=== PATIENT | female | born 1945 | race African-American/Black ===

== ENCOUNTER 2020-04-15 09:12 | Outpatient (CLI) | payer MEDICARE, SELFPAY ==
--- NOTE | ~2020-04-15 | MM_ITS ---
EXAMINATION: MM screening blair BI w ping HISTORY: Screening mammogram TECHNIQUE: Craniocaudal and mediolateral oblique 3-D tomosynthesis images were obtained and synthetic 2-D images were generated. CAD analysis was submitted and interpreted. COMPARISON: 04/10/2019, 04/07/2018, 04/05/2017 bilateral digital screening mammogram examinations BREAST PARENCHYMAL COMPOSITION: The breasts are almost entirely fatty. FINDINGS: Surgical clips are again noted on the right. Scattered bilateral benign calcifications. The re is no evidence of suspicious mass, calcification, or architectural distortion to suggest malignanc y in either breast. There has been no suspicious interval change. IMPRESSION: 1. No mammographic evidence of malignancy. 2. Recommend routine screening mammography in one year. BI-RADS Category 2: Benign finding(s). Reviewed, dictated and finalized at location B.
== END 2020-04-15 09:13 | disposition home or self-care (01) ==
LOC: ANHIMG 09:15
PROVIDERS: PCP Family Medicine; Visit Provider Obstetrics & Gynecology
DX: Z12.31 Encounter for screening mammogram for malignant neoplasm of breast (principal)
CPT/HCPCS: 77063; 77067

== ENCOUNTER 2020-04-29 15:49 | Outpatient (CLI) | payer MEDICARE, SELFPAY ==
--- NOTE | ~2020-04-29 | XR_ITS ---
EXAMINATION: XR lumbar spine 2-3V DATE: 04/29/2020 16:20 INDICATION: Low back pain TECHNIQUE: Anteroposterior and lateral views of the lumbar spine, and cone-down lateral view of the l umbosacral junction were obtained. COMPARISON: None. FINDINGS: There are 5 mm of anterolisthesis of L4 on L5 and 3 mm of retrolisthesis of L5 on S1. There is moderate to severe loss of intervertebral disc space height throughout the lumbar spine. The vert ebral body heights are maintained. Degenerative osteophytes project from the anterior endplates of mu ltiple vertebral bodies. There is no fracture. There is severe lower lumbar facet osteoarthritis. Phl eboliths are noted in the pelvis. The bowel gas pattern is normal. IMPRESSION: 1. Severe lumbar spondylosis without acute findings. Reviewed, dictated and finalized at location A.
--- NOTE | ~2020-04-29 | XR_ITS ---
EXAMINATION: XR hip BI 2V w AP pelvis DATE: 04/29/2020 16:20 INDICATION: Hip pain TECHNIQUE: AP view of the pelvis and two views of the bilateral hips were obtained. COMPARISON: None. FINDINGS: Bone alignment is normal. There is no fracture. Mild bilateral hip osteoarthritis is noted. There are phleboliths of the pelvis. Severe lumbar spondylosis is noted. IMPRESSION: 1. Mild osteoarthritis of the hips. Reviewed, dictated and finalized at location A.
== END 2020-04-29 15:50 | disposition home or self-care (01) ==
LOC: ANHIMG 15:52
PROVIDERS: PCP Family Medicine; Visit Provider Family Medicine
DX: M16.0 Bilateral primary osteoarthritis of hip (principal); M47.896 Other spondylosis, lumbar region
CPT/HCPCS: 72100; 73521

== ENCOUNTER 2020-08-22 12:28 | Outpatient (CLI) | payer MEDICARE, SELFPAY ==
--- NOTE | ~2020-08-22 | CT_ITS ---
EXAMINATION: CT soft tissue neck w con DATE: 08/22/2020 13:10 INDICATION: Sialoadenitis. TECHNIQUE: Computed tomography (CT) of the neck was performed with 75 mL Omnipaque-350 intravenous co ntrast. Automated exposure control and iterative reconstruction technique were employed. The dose-forrest gth product was 672.32 mGy-cm. COMPARISON: Chest CT 03/12/2011 FINDINGS: There is a 2.1 x 1.8 cm mass in superficial right parotid gland. There is no sialolith or e vidence of parotiditis. There are no pathologically enlarged lymph nodes. There is a multinodular goi ter that extends into the mediastinum. The mediastinal component has increased in size from 03/12/2011. The paranasal sinuses are clear. The mastoid air cells are normal. There is moderate cervical spondy losis. IMPRESSION: 1. 2.1 cm right parotid mass. The differential diagnosis includes benign mixed tumor, Warthin tumor, and less likely primary malignancy or daniella metastatic disease. Ultrasound-guided fine-needle aspirat ion is recommended. 2. Multinodular goiter, worsened from 03/12/2011. Reviewed, dictated and finalized at location B. ETING RESEARCH ANALYST IMPRESSION: 1. 2.1 cm right parotid mass. The differential diagnosis includes benign mixed tumor, Warthin tumor, and less likely primary malignancy or daniella metastatic di sease. Ultrasound-guided fine-needle aspiration is recommended. 2. Multinodular goiter, worsened from 03/12/2011.
[2020-08-22 13:04] LABS: Estimated Glomerular Filt Rate 53
== END 2020-08-22 12:29 | disposition home or self-care (01) ==
PROVIDERS: PCP Family Medicine
DX: K11.20 Sialoadenitis, unspecified (principal); E04.2 Nontoxic multinodular goiter
CPT/HCPCS: 70491; Q9967

== ENCOUNTER 2020-09-12 09:53 | Outpatient (CLI) | payer MEDICARE, SELFPAY ==
--- NOTE | ~2020-09-12 | US_ITS ---
EXAMINATION: US FNA w image guidance DATE: 09/12/2020 11:19 INDICATION: Right parotid mass. TECHNIQUE: The procedure and its benefits, risks, and benefits were discussed with the patient. Risks specifical ly discussed included bleeding and nerve injury. The patient verbalized understanding of the risks an d agreed to proceed. The right face was prepped and draped in the usual sterile manner. 1% lidocaine was used for local anesthesia. 5 passes were made with a 25G needle into the lesion. Appropriate n eedle location was documented with continuous sonographic guidance. There were no immediate complica tions. The patient understood to call the ordering physician for results after a week and a half and verbalized that understanding. FINDINGS: Grayscale ultrasound images demonstrate needles advanced into a 2.6 x 1.7 x 2.4 cm very hypoechoic ma ss with internal vascular flow in superficial right parotid gland for biopsy. IMPRESSION: 1. Ultrasound-guided fine needle aspiration of a right parotid mass. Reviewed, dictated and finalized at location A. ITY CONTROL TECH [employer]S
--- NOTE | ~2020-09-12 | CT_ITS ---
EXAMINATION: CT IAC/mastoids BI w con DATE: 09/12/2020 10:45 INDICATION: Left-sided tinnitus. TECHNIQUE: Computed tomography (CT) of the temporal bones was performed with 75 mL Omnipaque 350 intr avenous contrast. Automated exposure control and iterative reconstruction technique were employed. Th e dose-length product was 193.65 mGy-cm. COMPARISON: Neck CT 08/22/2020 FINDINGS: There is a 2.2 cm mass in superficial right parotid gland. RIGHT TEMPORAL BONE: The internal auditory canal, cochlea, vestibule, semicircular canals, vestibular aqueduct, carotid ca nal, jugular bulb, facial nerve course, ossicles, Prussak space, scutum, tympanic membrane, mastoid a ir cells, and external auditory canal are normal. LEFT TEMPORAL BONE: The internal auditory canal, cochlea, vestibule, semicircular canals, vestibular aqueduct, carotid ca nal, jugular bulb, facial nerve course, ossicles, scutum, Prussak space, and mastoid air cells are no rmal. There is a 5 mm mass at the inferior aspect of the cochlear promontory that abuts the tympanic membrane and manubrium of malleus with bone erosions of the cochlear promontory. There is a small vol ume of cerumen in the external auditory canal. IMPRESSION: 1. 5 mm mass in left tympanic cavity. The differential diagnosis includes glomus tympanicum paragangl ioma, cholesteatoma, and chronic otitis media. 2. 2.2 cm right superficial parotid mass. Correlate with today's biopsy results when available. Reviewed, dictated and finalized at location A. PATTERN REPAIRER IMPRESSION: 1. 5 mm mass in left tympanic cavity. The differential diagnosis includes glomu s tympanicum paraganglioma, cholesteatoma, and chronic otitis media. 2. 2.2 cm right superficial parotid mass. Correlate with today's biopsy results when available.
== END 2020-09-12 09:54 | disposition home or self-care (01) ==
PROVIDERS: PCP Family Medicine
DX: H93.12 Tinnitus, left ear (principal); R22.1 Localized swelling, mass and lump, neck
CPT/HCPCS: 10005; 70481; 88173; 88305; Q9967

== ENCOUNTER 2021-04-17 10:38 | Outpatient (CLI) | payer MEDICARE, SELFPAY ==
--- NOTE | ~2021-04-17 | MM_ITS ---
EXAMINATION: MM screening blair BI w ping HISTORY: Screening mammogram TECHNIQUE: Craniocaudal and mediolateral oblique 3-D tomosynthesis images were obtained and synthetic 2-D images were generated. CAD analysis was submitted and interpreted. COMPARISON: 04/15/2020, , 04/07/2018 bilateral digital screening mammogram examinations BREAST PARENCHYMAL COMPOSITION: The breasts are almost entirely fatty. FINDINGS: Surgical clips are noted in the mid to upper inner right breast; history of prior benign ri ght breast biopsy in 1999. Bilateral benign calcifications. There is no evidence of suspicious mass, calcification, or architectural distortion to suggest malignancy in either breast. There has been no suspicious interval change. IMPRESSION: 1. No mammographic evidence of malignancy. 2. Recommend routine screening mammography in one year. BI-RADS Category 2: Benign finding(s). Reviewed, dictated and finalized at location A.
== END 2021-04-17 10:39 | disposition home or self-care (01) ==
LOC: ANHIMG 10:40
PROVIDERS: PCP Family Medicine; Visit Provider Family Medicine
DX: Z12.31 Encounter for screening mammogram for malignant neoplasm of breast (principal)
CPT/HCPCS: 77063; 77067

== ENCOUNTER 2021-06-12 00:27 | Day surgery (SDC) | payer MEDICARE, SELFPAY ==
[2021-05-30 14:45] VITALS: BMI 43.1
[2021-06-12 08:04] VITALS: BP 165/92; PULSE 71; RESP 16; TEMP 35.9; O2SAT 100; BMI 43.1
[2021-06-12] MEDS: LACTATED RINGERS 1,000 ML 150 ML IV CONT (08:11)
--- NOTE | 2021-06-12 08:30 | WPDHPUPDATE1 ---
History and Physical Update Update Date/Time: 06/12/21 08:30 History and Physical has been reviewed, including an updated exam of the patient. There are NO changes in the patient's condition. Risks, benefits, and alternatives have been discussed and questions answered. Patient agrees to proceed with procedure.
--- NOTE | 2021-06-12 08:53 | WPDANESEPPF ---
Anes - Initial Pre Proc Eval Procedure: Operation Date: 06/12/21 09:00 Proposed Procedures p Esophagogastroduodenoscopy & Screening Colonoscopy - Piotr Licona MD Date/Time: 06/12/21 08:53 Surgeon: Piotr Licona MD Pre Op Diagnosis: hx of colon polyps Z86.010 /GERD Patient Data Age: 75 Gender: F Height: 1.57 m Weight: 107 kg Last Vital Signs Temp 96.7 F L 06/12/21 08:04 Pulse 71 06/12/21 08:04 Resp 16 06/12/21 08:04 BP 165/92 H 06/12/21 08:04 Pulse Ox 100 06/12/21 08:04 Allergies Allergy/AdvReac Type Severity Reaction Status Date / Time metoclopramide Allergy Unknown Unknown Verified 06/12/21 08:01 METOCLOPRAMIDE HCL Allergy Severe NEUROLOGIC Uncoded 06/12/21 08:01 CHANGES Home Medications Medication Instructions Recorded Confirmed Type aspirin 81 mg tablet,delayed 81 mg PO DAILY 10/24/19 06/12/21 History release magnesium 250 mg tablet 250 mg PO DAILY 10/24/19 06/12/21 History levothyroxine 125 mcg tablet 125 mcg PO DAILY 12/20/20 05/30/21 History amlodipine 2.5 mg tablet See Rx Instructions .ROUTE 12/30/20 05/30/21 Rx .COMPLEX #90 tablet atorvastatin 10 mg tablet See Rx Instructions .ROUTE 12/30/20 06/12/21 Rx .COMPLEX #90 tablet losartan 100 mg tablet See Rx Instructions .ROUTE 03/07/21 06/12/21 Rx .COMPLEX #90 tablet cholecalciferol (vitamin D3) 25 25 mcg PO DAILY 04/09/21 06/12/21 History mcg (1,000 unit) capsule gabapentin 300 mg capsule 300 mg PO DAILY 04/09/21 06/12/21 History mecobalamin (vitamin B12) 1,000 500 mcg SUBLINGUAL DAILY tablet 04/09/21 06/12/21 History mcg disintegrating tablet,sublingual esomeprazole magnesium 40 mg See Rx Instructions .ROUTE 05/01/21 06/12/21 Rx capsule,delayed release .COMPLEX #90 cap fluticasone propionate 2 spray INTRANASAL DAILY PRN 05/30/21 06/12/21 History Patient hx anesthesia problems: none Family hx anesthesia problems: none PMFSH Past Medical History Medical History Colon polyps Hepatitis C antibody test negative (03/31/17) High cholesterol Pupil dilation Thyroid disease Surgical History Surgical History H/O colonoscopy H/O thyroidectomy (~2020) H/O: hysterectomy (~1979) Partical History of knee replacement (~2010) Family History Family History Father Family history of chronic obstructive pulmonary disease Hypertension Family history of elevated blood lipids Cerebrovascular accident Family history of coronary artery disease Mother Carcinoma of colon Other Asthma Diabetes mellitus Family history of congenital heart disease Family history of malignant neoplasm of breast in first degree relative Family history of osteoporosis Social History Social History (Updated 05/26/21 @ 13:46 by Rosanna Tan CMA) Smoking status: Never smoker Second hand tobacco smoke exposure: No Alcohol intake: never Substance use: never Substance use type: does not use Living arrangements: with family Gender identity (if verbalized by the patient): Female Spiritual care concerns: No Anes - Eval Final PreProcedure Day of Procedure 06/12/21 08:53 Patient weight: morbidly obese Heart: regular rate and rhythm Lungs: clear to auscultation Airway: Mallampati scale class II Neurological: alert and oriented Last oral intake: >/= 8 hours ASA classification: III Emergent: no Anesthetic plan: proceed Anesthesia type and monitoring: general GIVS and standard monitoring Informed Consent: The patient's anesthetic plan and its attendant risks and benefits were discussed with the patient/family/POA. Questions were solicited and answers provided to the satisfaction of the patient/family/POA.
[2021-06-12 09:46] VITALS: BP 135/81; PULSE 92; RESP 29; O2SAT 99
[2021-06-12 09:56] VITALS: BP 128/81; PULSE 85; RESP 28; O2SAT 99
[2021-06-12 10:06] VITALS: BP 143/94; PULSE 81; RESP 22; O2SAT 98
== END 2021-06-12 10:14 | disposition home or self-care (01) ==
PROVIDERS: PCP Family Medicine; Visit Provider Internal Medicine Gastroenterology
PROC: 0DJ08ZZ Inspection of Upper Intestinal Tract, Via Natural or Artificial Opening Endoscopic (ICD-10-PCS; CPT 43235; principal; 2021-06-12 09:00)
DX: Z12.11 Encounter for screening for malignant neoplasm of colon (principal); D12.2 Benign neoplasm of ascending colon; K63.5 Polyp of colon; K57.30 Diverticulosis of large intestine without perforation or abscess without bleeding; K21.9 Gastro-esophageal reflux disease without esophagitis; Q39.4 Esophageal web; E78.00 Pure hypercholesterolemia, unspecified; E66.9 Obesity, unspecified; Z96.659 Presence of unspecified artificial knee joint; Z90.711 Acquired absence of uterus with remaining cervical stump; Z86.010 Personal history of colon polyps
CPT/HCPCS: 45385; 43239; 43450; 87081; 88305; J2704; J7120

== ENCOUNTER 2022-07-27 14:26 | Outpatient (CLI) | payer MEDICARE, SELFPAY ==
--- NOTE | ~2022-07-27 | MM_ITS ---
EXAMINATION: MM screening blair BI w ping HISTORY: Screening TECHNIQUE: Craniocaudal and mediolateral oblique 3-D tomosynthesis images were obtained and synthetic 2-D images were generated. CAD analysis was submitted and interpreted. COMPARISON: Comparison to multiple prior studies sequentially, with oldest reviewed study dated 04/01. BREAST PARENCHYMAL COMPOSITION: Breast composed of scattered areas of fibroglandular density FINDINGS: There is no evidence of suspicious mass, calcification, or architectural distortion to sugg est malignancy in either breast. There has been no suspicious interval change. IMPRESSION: 1. No mammographic evidence of malignancy. 2. Recommend routine screening mammography in one year. BI-RADS Category 1: Negative Reviewed, dictated and finalized at location A.
== END 2022-07-27 14:27 | disposition home or self-care (01) ==
LOC: ANHIMG 14:27
PROVIDERS: PCP Family Medicine; Visit Provider Obstetrics & Gynecology
DX: Z12.31 Encounter for screening mammogram for malignant neoplasm of breast (principal)
CPT/HCPCS: 77063; 77067

== ENCOUNTER 2023-11-23 09:58 | Outpatient (CLI) | payer MEDICARE, SELFPAY ==
--- NOTE | ~2023-11-23 | MM_ITS ---
EXAMINATION: MM screening blair BI w ping HISTORY: Screening mammogram TECHNIQUE: Craniocaudal and mediolateral oblique 3-D tomosynthesis images were obtained and synthetic 2-D images were generated. CAD analysis was submitted and interpreted. COMPARISON: 07/27/2022, 04/17/2021, 04/15/2020, 04/10/2019 BREAST PARENCHYMAL COMPOSITION: There are scattered areas of fibroglandular density. FINDINGS: Scattered benign-appearing calcifications are present. No suspicious mass, calcification, o r architectural distortion are identified in either breast to suggest malignancy. There has been no s uspicious interval change. IMPRESSION: 1. No mammographic evidence of malignancy. 2. Recommend routine screening mammography in one year. BI-RADS Category 2: Benign finding(s). Reviewed, dictated and finalized at location A. INTERVIEWER [employer]AGE
== END 2023-11-23 09:59 | disposition home or self-care (01) ==
PROVIDERS: PCP Family Medicine; Visit Provider Obstetrics & Gynecology
DX: Z12.31 Encounter for screening mammogram for malignant neoplasm of breast (principal)
CPT/HCPCS: 77063; 77067

== ENCOUNTER 2024-04-01 11:12 | Outpatient (CLI) | payer MEDICARE, SELFPAY ==
--- NOTE | ~2024-04-01 | MR_ITS ---
EXAMINATION: MR lumbar spine wo con DATE: 04/01/2024 11:58 INDICATION: Lumbar spondylosis without myelopathy radiculopathy. Low back pain. TECHNIQUE: Magnetic resonance imaging (MRI) of the lumbar spine was performed without intravenous con trast. Sequences included sagittal T2-weighted FSE, sagittal T2-weighted FS FSE, sagittal T1-weighted FSE, and axial T2-weighted FSE. COMPARISON: Lumbar spine radiograph 04/01/2024 FINDINGS: There is 5 mm anterolisthesis of L4 on L5. Vertebral body heights are normal. There is mode rately decreased disc height at L1-L2 and severely decreased disc height from L2-L3 through L5-S1. Th e distal spinal cord signal intensity is normal. The conus medullaris is at L1. The following disc le vels are specifically discussed: L1-L2: The disc is bulging with superimposed central extrusion. There is moderate bilateral facet chepe nt osteoarthritis. There is mild bilateral neural foraminal stenosis. There is mild central canal марина nosis. L2-L3: The disc is bulging and has an annular fissure. There is severe right and moderate left facet joint osteoarthritis. There is moderate bilateral neural foraminal stenosis. There is mild central ca nal stenosis. L3-L4: The disc is bulging and has an annular fissure. There is severe bilateral facet joint osteoart hritis. There is mild right and moderate left neural foraminal stenosis. There is mild central canal stenosis. L4-L5: The disc is bulging and has an annular fissure. There is severe bilateral facet joint osteoart hritis. There is mild bilateral neural foraminal stenosis. There is mild central canal stenosis. L5-S1: The disc is bulging and has an annular fissure. There is severe bilateral facet joint osteoart hritis. There is mild bilateral neural foraminal stenosis. There is mild central canal stenosis. IMPRESSION: 1. Severe lumbar spondylosis. Reviewed, dictated and finalized at location E.
--- NOTE | ~2024-04-01 | XR_ITS ---
XR lumbar spine 6V w bending DATE: 04/01/2024 12:31 INDICATION: Spondylolisthesis, lumbar region TECHNIQUE: AP, lateral, bilateral oblique and cone-down lateral lumbosacral views. Flexion and extens ion upright views COMPARISON: None FINDINGS: Diffuse osteopenia. Degenerative spurring of the lower thoracic spine. Severe degenerative disease throughout the lumbar spine. There is approximately 6.7 mm grade 1 anterolisthesis at L4-5, relatively stable in neutral, flexion and extension. Degenerative change at the apophyseal joints. No spondylolysis is evident. The sacroiliac joints are intact. IMPRESSION: Severe degenerative disc disease of the lumbosacral spine Grade 1 anterolisthesis at L4-5, relatively stable in flexion, extension and neutral Reviewed, dictated and finalized at location A. IMPRESSION: Severe degenerative disc disease of the lumbosacral spine Grade 1 anterolisthesis at L4-5, relatively stable in flexion, extension and ne utral
--- NOTE | ~2024-04-01 | XR_ITS ---
XR hip BI 2V w AP pelvis DATE: 04/01/2024 12:31 INDICATION: Hip pain TECHNIQUE: AP pelvis. AP and lateral views of each hip. COMPARISON: None FINDINGS: Severe degenerative disc disease at L3-4, L4-5, L5-S1. Normal alignment at the pubic symphysis and sacral iliac joints. No pelvic fracture or bone destruction. Mild bilateral hip osteoarthritis. No fracture or dislocation, avascular necrosis or bone destruction of either hip is evident. IMPRESSION: Mild bilateral hip osteoarthritis Multilevel severe degenerative disease of the lumbar spine Reviewed, dictated and finalized at location A.
== END 2024-04-01 11:13 ==
LOC: MICIMG 11:13
PROVIDERS: PCP Family Medicine; Visit Provider Anesthesiology Pain Medicine
DX: M16.0 Bilateral primary osteoarthritis of hip (principal); M43.16 Spondylolisthesis, lumbar region; M51.37 Other intervertebral disc degeneration, lumbosacral region; M51.36 Other intervertebral disc degeneration, lumbar region
CPT/HCPCS: 72114; 72148; 73521

== ENCOUNTER 2024-04-18 09:07 | Day surgery (SDC) | payer MEDICARE, SELFPAY ==
[2024-04-03 11:38] VITALS: BMI 39.8
--- NOTE | ~2024-04-18 | XR_ITS ---
XR fluoroscopy no charge Indication: Bilateral L3, L4 and L5 nerve block TECHNIQUE: Fluoroscopy used during Bilateral L3, L4 and L5 nerve block performed by [Jose Tracy MD] on 04/18/2024. 86 seconds of fluoroscopy with 11 fluoroscopic images captured. FINDINGS: Correlate with procedure note. IMPRESSION: Fluoroscopy used during Bilateral L3, L4 and L5 nerve block. Reviewed, dictated and finalized at location B.
--- NOTE | 2024-04-18 10:34 | PM.HPGS ---
History of Present Illness History of Present Illness Consent: Risks, benefits, and alternatives have been discussed and questions answered. Patient agrees to proceed with procedure. Chief complaint: Lumbosacral Spondylosis, Chronic Dorsalgia Narrative: Flower Austin is a 78 year old female with chronic, recalcitrant and disabling bilateral lumbosacral back pain secondary to degenerative spondylosis with failure to respond to aggressive conservative measures including PT, oral and topical analgesics, opioid and nonopioid analgesics, rest, time and activity/behavioral modification over the past 1-2 years who presents for diagnostic/prognostic medial branch blocks(#1) under fluoroscopic guidance and with contrast control. Review of Systems Review of Systems: Patient denies any new infectious, allergic, cardiopulmonary, neurologic or constitutional symptoms or changes in activity tolerance or exercise capacity including new or progressive SOB/STOREY, peripheral edema, productive cough, dysuria, nausea/vomiting, diarrhea, weight change, fevers/chills/night sweats, new or progressive neurologic deficit, cognitive or mood changes since last seen, except as documented in the HPI. All systems reviewed & are unremarkable except as noted in HPI and below PMFSH Past Medical History Medical History Colon polyps Hepatitis C antibody test negative (03/31/17) High cholesterol Pupil dilation Thyroid disease Surgical History Surgical History H/O colonoscopy H/O mastoidectomy H/O thyroidectomy (~2020) H/O: hysterectomy (~1979) Partical History of knee replacement (~2010) History of parotidectomy History of thyroidectomy History of tympanomastoidectomy Family History Family History Father Family history of chronic obstructive pulmonary disease Hypertension Family history of elevated blood lipids Cerebrovascular accident Family history of coronary artery disease Mother Carcinoma of colon Other Asthma Diabetes mellitus Family history of congenital heart disease Family history of malignant neoplasm of breast in first degree relative Family history of osteoporosis Social History Social History (Updated 03/14/24 @ 13:23 by Roxanne Lyons CMA) Social History: Caffeine-decaf coffee Smoking status: Never smoker Second hand tobacco smoke exposure: No Alcohol intake: never Substance use: never Substance use type: does not use Do You Feel Safe in your Home?: Yes Lack of Transportation: No Lack of Food: Never True Current Housing: I Have Housing Concerned About Future Housing: No Difficulty Paying Gas/Electric Bills: No Difficulty Paying for Meds: No Currently Unemployed: No Education: High School Diploma/GED Difficulty w/ Childcare or Family Care: No Living arrangements: with family Gender identity (if verbalized by the patient): Female Spiritual care concerns: No Meds Home Medications and Allergies Home Medications Medication Instructions Recorded Confirmed Type aspirin 81 mg tablet,delayed 81 mg PO DAILY 10/24/19 04/03/24 History release magnesium 250 mg tablet 250 mg PO DAILY 10/24/19 04/03/24 History cholecalciferol (vitamin D3) 25 25 mcg PO DAILY 04/09/21 04/03/24 History mcg (1,000 unit) capsule mecobalamin (vitamin B12) 1,000 500 mcg sublingual DAILY 04/09/21 04/03/24 History mcg disintegrating tablet,sublingual calcium carbonate (Calcium 600) 600 mg PO DAILY 11/05/21 04/03/24 History esomeprazole magnesium 40 mg 40 mg PO DAILY #90 caps 10/26/23 04/03/24 Rx capsule,delayed release fluticasone propionate 50 See Rx Instructions .Route 11/29/23 04/03/24 Rx mcg/actuation nasal .COMPLEX #16 grams spray,suspension gabapentin 100 mg capsule 200 mg PO DA
--- NOTE | 2024-04-18 10:39 | WPDHPUPDATE1 ---
History and Physical Update Update Date/Time: 04/18/24 10:39 History and Physical has been reviewed, including an updated exam of the patient. There are NO changes in the patient's condition. Risks, benefits, and alternatives have been discussed and questions answered. Patient agrees to proceed with procedure.
[2024-04-18 10:42] VITALS: BP 165/75; PULSE 69; RESP 18; TEMP 36.9; O2SAT 99; BMI 40.3
--- NOTE | 2024-04-18 10:42 | W.PM.PROC2 ---
Procedure Note - Detailed Date of Procedure 04/18/24 Pre-op Diagnosis Lumbosacral Spondylosis, Chronic Dorsalgia Post-op Diagnosis Same Procedure Performed Diagnostic Bilateral Lumbar Medial Branch/Dorsal Ramus Blocks at L3, L4, L5 Treating the Ipsilateral L4-5, L5-S1 Facet Joints Under Fluoroscopic Guidance and with Contrast Control. ( 4 levels blocked). Surgeon Jose Tracy MD Anesthesia Local Description of Procedure INFORMED CONSENT: Risks, benefits and alternatives to the procedure were discussed in detail with the patient who expressed explicit understanding and consent to proceed. Patient was informed verbally and in written form regarding the risks associated with the procedure including the low risk of serious infection, bleeding/bruising, allergic reaction, nerve or organ injury, paralysis, procedural site pain or discomfort, worsening pain and/or mobility, failure to treat and/or disfigurement. The patient expressed explicit understanding and consent to proceed. All materials required for the procedure were available prior to procedure start. Site and side were marked prior to procedure and confirmed in the presence of the patient. PROCEDURE IN DETAIL: The patient was brought to the procedural suite and placed in the prone position. Patient was made comfortable with use of pillows under the head/chest, hips and ankles. Skin overlying the injection site on the affected side(s) was prepared broadly with ChloraPrep applicator and draped in a sterile manner. Aseptic technique was used throughout. The endplates of the vertebral bodies at the site(s) of interest were aligned in the AP view. Ipsilateral oblique angulation was utilized to optimize visualization of the intersection between the superior articulating process and transverse process at each target site. Local anesthesia was established by infiltration with approximately 5 mL of 1% lidocaine via a 1-1/2 inch 27-gauge needle. A 25-gauge 3.5 inch Quincke spinal needle was advanced until the needle tip contacted periosteum at the target site, right L3. Lateral view was utilized to confirm the appropriate placement of the needle tip just anterior to the facet line and superior to the pedicle. In the Lateral view, 0.25 mL of Omnipaque 300 contrast medium was injected after negative aspiration for CSF, blood or other bodily fluid, showing appropriate extra-articular spread of contrast without evidence of intravascular, foraminal or intrathecal placement. A 0.5 mL solution of 0.5% PF bupivacaine was injected after negative repeat aspiration. Appropriate spread of the injectate was confirmed with washout of previously injected contrast. No parasthesias were elicited. Needle was removed completely intact without difficulty. [The same exact procedure was repeated for all remaining levels on the ipsilateral side, right L4, L5 medial branches/dorsal ramus, modified as necessary to accommodate for the new target location with identical findings and results and no evidence of complication.] [The same exact procedure was repeated for all remaining levels on the contralateral side, left L3, L4, L5 medial branches/dorsal ramus, modified as necessary to accommodate for the new target location with identical findings and results and no evidence of complication.] Images were saved and documented in the patient chart. Patient's skin was cleaned and sterile bandage applied. The patient tolerated the procedure well. The patient was transported to the recovery area in stable condition where they were observed for an appropriate amount of time prior to discharge, without evidence of complication. Patient was instructed on the appropriate completion of a pain diary over the next 12-24 hours. The patient was instructed to avoid excessive activity for the next 48 hours, including climbing and frequent use of stairs. Showers only for 48 hours. They were instructed not to drive or operate heavy machinery for 24 hours. The
[2024-04-18 12:07] VITALS: BP 210/98; PULSE 79; RESP 11; O2SAT 96
[2024-04-18 12:13] VITALS: BP 101/55; PULSE 41; RESP 12; O2SAT 97
[2024-04-18 12:14] VITALS: BP 128/63; PULSE 53; RESP 12; O2SAT 95
[2024-04-18 12:17] VITALS: BP 131/61; PULSE 60; RESP 12; O2SAT 95
[2024-04-18] MEDS: LIDOCAINE HCL 1% PF INJ 5 ML VIAL INFILTRATE (12:17)
[2024-04-18] MEDS: BUPivacaine HCL 0.5% 10 ML AMP 3 ML INFILTRATE (12:17)
--- NOTE | 2024-04-18 12:19 | SUR.OPER ---
During procedure, patient felt nauseated and blood pressure had dropped to 101/55 and heart rate dropped to 41. Patient was uncovered and cool wash cloth placed on neck. Surgeon was made aware of situation. Blood pressured rebounded back up to 131/61. Patient stated she felt better but a little dizzy. Heart rate up to 60 BPM.
[2024-04-18 12:24] VITALS: BP 140/72; PULSE 57; RESP 14; O2SAT 100
== END 2024-04-18 12:37 | disposition home or self-care (01) ==
PROVIDERS: PCP Family Medicine; Visit Provider Anesthesiology Pain Medicine
PROC: (CPT 64493; principal; 2024-04-18 11:00)
DX: M47.817 Spondylosis without myelopathy or radiculopathy, lumbosacral region (principal); M54.89 Other dorsalgia
CPT/HCPCS: 64493; 64494; 99199

== ENCOUNTER 2024-06-13 07:44 | Day surgery (SDC) | payer MEDICARE, SELFPAY ==
[2024-05-29 11:02] VITALS: BMI 41.1
--- NOTE | ~2024-06-13 | XR_ITS ---
EXAMINATION: XR fluoroscopy no charge DATE: 06/13/2024 08:58 INDICATION: Bilateral sacroiliitis. TECHNIQUE: 24 intraoperative fluoroscopic views of the pelvis were obtained. I was not present. Fluor oscopy exposure time was 12 seconds. COMPARISON: Pelvis radiograph 04/01/2024. FINDINGS: Images demonstrate needles in the bilateral sacroiliac joints. IMPRESSION: 1. Injection of the bilateral sacroiliac joints. Reviewed, dictated and finalized at location A.
--- NOTE | 2024-06-13 06:34 | PM.HPGS ---
History of Present Illness History of Present Illness Consent: Risks, benefits, and alternatives have been discussed and questions answered. Patient agrees to proceed with procedure. Chief complaint: Sacroiliitis Narrative: Flower Austin is a 78 year old female with chronic, recalcitrant and disabling bilateral lumbosacral back pain secondary to degenerative lumbosacral spondylosis, sacroiliac joint arthropathy and sacroiliitis with failure to respond to aggressive conservative measures including PT, oral and topical analgesics, opioid and nonopioid analgesics, rest, time and activity/behavioral modification over the past 1-2 years who presents for bilateral intra-articular SI joint steroid injections under fluoroscopic guidance and with contrast control. Review of Systems Review of Systems: Patient denies any new infectious, allergic, cardiopulmonary, neurologic or constitutional symptoms or changes in activity tolerance or exercise capacity including new or progressive SOB/STOREY, peripheral edema, productive cough, dysuria, nausea/vomiting, diarrhea, weight change, fevers/chills/night sweats, new or progressive neurologic deficit, cognitive or mood changes since last seen, except as documented in the HPI. All systems reviewed & are unremarkable except as noted in HPI and below PMFSH Past Medical History Medical History Colon polyps Hepatitis C antibody test negative (03/31/17) High cholesterol Pupil dilation Spinal stenosis, lumbar region with neurogenic claudication Thyroid disease Surgical History Surgical History H/O colonoscopy H/O mastoidectomy H/O thyroidectomy (~2020) H/O: hysterectomy (~1979) Partical History of knee replacement (~2010) History of parotidectomy History of thyroidectomy History of tympanomastoidectomy Family History Family History Father Family history of chronic obstructive pulmonary disease Hypertension Family history of elevated blood lipids Cerebrovascular accident Family history of coronary artery disease Mother Carcinoma of colon Other Asthma Diabetes mellitus Family history of congenital heart disease Family history of malignant neoplasm of breast in first degree relative Family history of osteoporosis Social History Social History Social History: Caffeine-decaf coffee Smoking status: Never smoker Second hand tobacco smoke exposure: No Alcohol intake: never Substance use: never Substance use type: does not use Do You Feel Safe in your Home?: Yes Lack of Transportation: No Lack of Food: Never True Current Housing: I Have Housing Concerned About Future Housing: No Difficulty Paying Gas/Electric Bills: No Difficulty Paying for Meds: No Currently Unemployed: No Education: High School Diploma/GED Difficulty w/ Childcare or Family Care: No Living arrangements: alone Gender identity (if verbalized by the patient): Female Spiritual care concerns: No Meds Home Medications and Allergies Home Medications Medication Instructions Recorded Confirmed Type aspirin 81 mg tablet,delayed 81 mg PO DAILY 10/24/19 05/29/24 History release magnesium 250 mg tablet 250 mg PO DAILY 10/24/19 05/29/24 History cholecalciferol (vitamin D3) 25 25 mcg PO DAILY 04/09/21 05/29/24 History mcg (1,000 unit) capsule calcium carbonate (Calcium 600) 600 mg PO DAILY 11/05/21 05/29/24 History fluticasone propionate 50 See Rx Instructions .Route 11/29/23 05/29/24 Rx mcg/actuation nasal .COMPLEX #16 grams spray,suspension gabapentin 100 mg capsule 200 mg PO DAILY #180 caps 01/07/24 05/29/24 Rx amlodipine 2.5 mg tablet 2.5 mg PO DAILY #90 tabs 04/07/24 05/29/24 Rx hydrochlorothiazide 12.5 mg tablet 12.5
--- NOTE | 2024-06-13 06:41 | WPDHPUPDATE1 ---
History and Physical Update Update Date/Time: 06/13/24 06:41 History and Physical has been reviewed, including an updated exam of the patient. There are NO changes in the patient's condition. Risks, benefits, and alternatives have been discussed and questions answered. Patient agrees to proceed with procedure.
--- NOTE | 2024-06-13 06:42 | W.PM.PROC2 ---
Procedure Note - Detailed Date of Procedure 06/13/24 Pre-op Diagnosis Sacroiliitis Post-op Diagnosis Same Procedure Performed bilateral Sacroiliac Joint Steroid Injection under Fluoroscopic Guidance and with Contrast Control. Surgeon Jose Tracy MD Anesthesia Local Description of Procedure INFORMED CONSENT: Risks, benefits and alternatives to the procedure were discussed in detail with the patient who expressed explicit understanding and consent to proceed. Patient was informed verbally and in written form regarding the risks associated with the procedure including the low risk of serious infection, bleeding/bruising, allergic reaction, nerve or organ injury, paralysis, procedural site pain or discomfort, worsening pain and/or mobility, failure to treat and/or disfigurement. The patient expressed explicit understanding and consent to proceed. All materials required for the procedure were available prior to procedure start. Site and side were marked prior to procedure and confirmed in the presence of the patient. PROCEDURE IN DETAIL: The patient was brought to the procedural suite and placed in the prone position. Patient was made comfortable with use of pillows under the head/chest, hips and ankles. Skin overlying the injection site on the affected side(s) was prepared broadly with ChloraPrep applicator and draped in a sterile manner. Aseptic technique was used throughout. The right SI joint was identified in the AP view and contralateral oblique angulation with caudal tilt was utilized to optimize visualization of the inferior and medial joint line representing the posterior portion of the joint. Local anesthesia was established by infiltration with approximately 5 mL of 2% lidocaine via a 1-1/2 inch 27-gauge needle. A 22-gauge 3.5 inch Quincke spinal needle was advanced until the needle entered the inferior third of the joint space approximately 1cm cephalad from its most inferior point. In the AP view, 0.5 mL of Omnipaque 300 contrast medium was injected after negative aspiration for CSF, blood or other bodily fluid, showing appropriate intra-articular spread of contrast without evidence of intravascular, perineural or intrathecal placement. A 1.5 mL solution containing 3 mg of betamethasone in 0.5% PF bupivacaine was injected after repeat negative aspiration. Appropriate spread of the injectate was confirmed with washout of previous injected contrast. No parasthesias were elicited. Needle was removed completely intact without difficulty. The same exact procedure was repeated for all remaining levels on the contralateral side, left SI joint, modified as necessary to accommodate for the new target location with identical findings/results and no evidence of complication. Images were saved and documented in the patient chart. Patient's skin was cleansed and sterile bandage applied. The patient tolerated the procedure well. The patient was transported to the recovery area in stable condition where they were observed for an appropriate amount of time prior to discharge, without evidence of complication. The patient was instructed to avoid excessive activity for the next 48 hours, including climbing and frequent use of stairs. Showers only for 48 hours. They were instructed not to drive or operate heavy machinery for 24 hours. They are to monitor for severe headaches, fevers, chills, night sweats, erythema/swelling at the site or any other signs of infection, bleeding/bruising, bowel or bladder changes as well as new pain, weakness or numbness in the upper or lower extremity. Should they notice these changes, they are instructed to call our office immediately or report directly to the nearest Emergency Department if no answer or if after posted office hours. COMPLICATIONS: None COMMENTS: None CONTRAST WASTED: 29mL Omnipaque 300. Complications No immediate complications Condition Stable Disposition Same day [facility] Billing Surgery - Charge Forwar
[2024-06-13 08:26] VITALS: BP 149/69; PULSE 58; RESP 18; TEMP 36.6; O2SAT 100; BMI 41.5
[2024-06-13 08:42] VITALS: BP 199/91; PULSE 63; RESP 18; O2SAT 98
[2024-06-13] MEDS: LIDOCAINE HCL 1% PF INJ 5 ML VIAL 2 ML INFILTRATE (08:43)
[2024-06-13] MEDS: BUPivacaine HCL 0.5% PF 30 ML VIAL INFILTRATE (08:45)
[2024-06-13] MEDS: BETAMETHASONE SODIUM PHOSPHATE PF INJ 6 MG/ML VIAL INFILTRATE (08:45)
[2024-06-13 08:47] VITALS: BP 178/89; PULSE 63; RESP 14; O2SAT 98
[2024-06-13 08:50] VITALS: BP 164/76; PULSE 59; RESP 15; O2SAT 97
== END 2024-06-13 09:05 | disposition home or self-care (01) ==
PROVIDERS: PCP Family Medicine; Visit Provider Anesthesiology Pain Medicine
PROC: (CPT G0260; principal; 2024-06-13 09:00)
DX: M46.1 Sacroiliitis, not elsewhere classified (principal)
CPT/HCPCS: G0260 ×2; 27096; 99199

== ENCOUNTER 2025-05-14 11:03 | Outpatient (CLI) | payer MEDICARE, SELFPAY ==
--- NOTE | ~2025-05-14 | CT_ITS ---
EXAMINATION: CT sinus wo con DATE: 05/14/2025 11:18 INDICATION: Chronic sinusitis TECHNIQUE: Computed tomography (CT) of the paranasal sinuses was performed without intravenous contra st. The dose-length product was 261.43 mGy-cm. Automated exposure control and iterative reconstructio n technique were employed. COMPARISON: None FINDINGS: There is pneumatization of the sinuses with mild mucosal thickening left posterior ethmoid air cells. No mucoperiosteal reaction or air-fluid levels. Ostiomeatal units are patent. Rightward na isa septal deviation. Mastoids are pneumatized. IMPRESSION: 1. Mild left ethmoid sinus disease. Reviewed, dictated and finalized at location A.
== END 2025-05-14 11:04 | disposition home or self-care (01) ==
LOC: MICIMG 11:03
PROVIDERS: PCP Family Medicine; Visit Provider Otolaryngology Otolaryngology/Facial Plastic Surgery
DX: J32.2 Chronic ethmoidal sinusitis (principal)
CPT/HCPCS: 70486

== ENCOUNTER 2025-05-16 09:44 | Outpatient (CLI) | payer MEDICARE, SELFPAY ==
--- OUTSIDE RECORDS SUMMARY | 2025-05-16 10:08 | XMS_ITS | Encounter Summary ---
Author Organization [facility] Address [address] [place] [address] Phone Care Team Providers Care Machine Gun Mechanic Name Role Phone Renay Montiel DO Primary Care Provider [phone] Elizabeth Melendez MD Unavailable [phone] Encounter Details Date Type Department Care Team (Late st Contact Info) Description 08/04/2021 Orders Only [facility] [phone] Scanning, Provider Social History Tobacco Use Types Packs/Day Years Used Date Smoking Tobacco: Never Smokeless Tobacco: Never Alcohol Use Standard Drinks/Week Comments Never 0 (1 standard drink = 0.6 oz pur e alcohol) AUDIT-C Answer Date Recorded Q1: How often do you have a drink containing alc ohol? Never 08/07/2021 Average Number of Drinks Not on file 021 Q3: How often do you have si x or more drinks on one occasion? Never 08/07/2021 Comments No Sex and Gender Information Value Date Recorded Sex Assigned at Not on file Legal Sex Female 3:10 AM PARCEL POST DELIVERY Gender Identity Female 10/14/2020 11:24 AM PARCEL POST DELIVERY Sexual Orientation Straight 10/14/2020 11 :24 AM PARCEL POST DELIVERY documented as of this encounter Functional Status documented as of this encounter Plan of Treatment Not on file documented as of this encounter Procedures Procedure Name Priority Date/Time Associated Diagnosis Comments SCAN - RADIOLOGY/IMAGING 08/04/2021 documented in this encounter Results * SCAN - RADIOLOGY/IMAGING (08/04/2021) Anatomical Region Laterality Modality Other us Provider Scanning Final Result documented in this encounter Visit Diagnoses Not on filedocumented in this encounter Care Teams Machine Gun Mechanic Relationship Specialty Start Date End Date Renay Montiel DO PCP - General Family Medicine 10/15/20 Elizabeth Melendez MD [address] [address] Consulting Physician Otolaryngology 11/04/20 documented as of this encounter
--- OUTSIDE RECORDS SUMMARY | 2025-05-16 10:08 | XMS_ITS | Clinical Summary ---
Author Organization [facility] [place] Address [address] [place] [address] Phone Care Team Providers Care Supervisor Calibration Name Role Phone Rafita Benoit MD Primary Care Provider [phone] Allergies No known active allergies Medications levothyroxine (SYNTHROID) 100 mcg Oral tablet Take 100 mcg by mouth daily. Active lisinopril (PRINIVIL) 20 mg Oral tablet Take 20 mg by mouth daily. Active esomeprazole (NEXIUM) 40 mg Oral CpDR Take 40 mg by mouth daily before breakfast. Active Amlodipine-Atorv astatin (CADUET) 2.5-10 mg Oral tablet Take 1 Tab by mouth daily. Active irbesartan (AVAPRO) 150 mg Oral tablet Take 150 mg by mouth daily at bedtime. Active aspirin (VIANCA) 81 mg Oral Tab Take 81 mg by mouth daily. Active diclofenac sodium (VOLTAREN) 75 mg Oral TbEC Take 75 mg by mouth 2 times daily. Active CALCIUM ORAL Take by mouth. Active CYANOCOBALAMIN, VITAMIN B-12, (VITAMIN B-12 ORAL) Take by mouth. Active POTASSIUM (POTASSIMIN ORAL) Take by mouth. Active MAGNESIUM CARBONATE ORAL Take by mouth. Active Active Problems Patient Care Coordination No te Formatting of this note migh t be different from the original. Primary Care: Rafita Benoit MD Referring Provider: Yoly Negrete [address] [place] [address] Other: Problem Noted Date Diagnosed Date Abnormal mammogram, unspecified 01/31/2010 HTN (hypertension) Hyperlipidemia Arthritis Overview (01/31/2010): knees GERD (gastroesophageal reflux disease) Hypothyroidism Family History Medical History Relation Name Comments Heart Disease Father Colon Cancer Mother Breast Cancer Paternal Aunt Cancer Neg Hx Ovarian Cancer Neg Hx Relation Name Status Comments Father Mother Paternal Aunt 58 Social History Tobacco Use Types Packs/Day Years Used Date Smoking Tobacco: Never Alcohol Use Standard Drinks/Week Comments No 0 (1 standard drink = 0.6 oz pur e alcohol) Comments No Sex and Gender Information Value Date Recorded Sex Assigned at Not on file 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 Gender Identity Not on file Sexual Orientation Not on file Last Filed Vital Signs Vital Sign Reading Time Taken Comments Blood Pressure 196/96 08/11/2010 1:20 PM CDT Pulse - - Temperature - - Respiratory Rate - - Oxygen Saturation - - Inhaled Oxygen Concentration - - Weight 106.1 kg (234 lb) 08/11/2010 1:20 PM CDT Height 157.5 cm (5' 2) 08/11/2010 1:20 PM CDT Body Mass Index 42.8 08/11/2010 1:20 PM CDT Plan of Treatment Health Maintenance Due Date Last Done Comments DTAP/TDAP/TD VACCINES (1 - Tdap) 1964 PNEUMOCOCCAL VACCINE 50+ YEARS (1 of 1 - PCV) 12/25/18 96 ZOSTER VACCINE (1 of 2) 12/26/1995 OSTEOPOROSIS SCREENING 2010 RSV VACCINE (60+ or ) (1 - 1-dose 75+ series) 2020 INFLUENZA VACCINE (#1) 2025 Insurance Member Subscriber Plan / Payer (Ef fective 2021-Present) Name:Flower Austin Relation to Subscriber:Spouse Name:SHEILA AUSTIN Date of :1945 (Home) Address: [address] [place] [id number] Payer ID:[id number] (NAIC) Type:PPO Address: [facility] [id number] [place] [id number] MEDICARE PART A AND B Care Teams Supervisor Calibration Relationship Specialty Start Date End Date Rafita Benoit MD [address] [place] [address] PCP - General Family Practice 01/31/10
--- OUTSIDE RECORDS SUMMARY | 2025-05-16 10:08 | XMS_ITS | Clinical Summary ---
Author Organization [facility] Address [address] [address] Phone Care Team Providers Care Folder And Notcher Name Role Phone Piotr Brandt DO Unavailable [phone] Rafita Benoit MD Primary Care Provider [phone] Allergies Active Allergy Reactions Criticality Noted Date Comments Metoclopramide Hcl Unknown 12/02/2015 Medications losartan (COZAAR) 100 MG Tablet Take 100 mg by mouth daily. Active esomeprazole (NEXIUM) 40 MG CAPSULE DELAYED RELEASE Take 40 mg by mouth every morning (before breakfast). Active levothyroxine (SYNTHROID) 100 MCG Tablet Take 100 mcg by mouth daily. Active lisinopril (PRINIVIL, ZESTRIL) 20 MG Tablet Take 20 mg by mouth 2 times daily. Active Amlodipine-Ator vastatin 2.5-10 MG Tablet Take 1 Tab by mouth daily. Active Aspirin 81 MG Tablet Take 81 mg by mouth daily. Active Calcium Carb-Cholecalci ferol 600-800 MG-UNIT Tablet Take by mouth 2 times daily. Active Cholecalciferol (VITAMIN D3) 1000 UNIT Tablet Take by mouth daily. Active Cyanocobalamin (B-12) 500 MCG Tablet Take by mouth daily. Active Magnesium 250 MG Tablet Take by mouth daily. Active Ferrous Sulfate (IRON) 325 (65 FE) MG Tablet Take by mouth 2 times daily. Active ibuprofen (MOTRIN) 200 MG Tablet Take 200 mg by mouth 2 times daily. Active fluticasone (FLONASE) 50 MCG/ACT Suspension 1-2 Sprays by Nasal route daily. Use in each nostril as directed. Active Immunizations Immunization Administration Dates Next Due Covid-19, Mrna, Lnp-s, PF, 1 00 mcg/0.5 mL Dose (Moderna) 12/16/2020,11/15/2020 Influenza Vaccine greater than 3 yrs 07/15/2017 Family History Medical History Relation Name Comments Chronic Obstructive Pulmonary Disease Father Colon Cancer Mother Breast Cancer Other Aunt x2 Relation Name Status Comments Father Mother Other Social History Tobacco Use Types Packs/Day Years Used Date Smoking Tobacco: Never Smokeless Tobacco: Never Alcohol Use Standard Drinks/Week Comments No 0 (1 standard drink = 0.6 oz pur e alcohol) Comments Unknown Sex and Gender Information Value Date Recorded Sex Assigned at Female 03/14/2024 4:50 PM CDT Legal Sex Female 7:54 PM CDT Gender Identity Female 03/14/2024 4:50 PM CDT Sexual Orientation Straight 03/14/2024 4: 50 PM CDT Plan of Treatment Health Maintenance Due Date Last Done Comments Hepatitis C Virus (HCV) Screening 1945 TdaP Immunization 1945 Pneumococcal Immunization (50+ years) (1 of 1 - PCV) 12/26/1995 Zoster Immunization (2 of 3) 11/03/2015 09/08/2015 Respiratory Syncytial Virus (RSV) Immunization (Adult) (1 - 1-dose 75+ series) 2020 SARS-COV-2 Immunization ( season) 2024 01/11/2022, 08/24/2021, 12/16/2020, Additional history exists Influenza Immunization (#1) 2025 09/2 03/2019, 07/11/2018, 07/15/2017, Additional history exists Colonoscopy Discontinued 11/28/2015 Colorectal Cancer Screening Discontinued DTaP/Tdap/Td Immunization Discontinued 12/09/2017 Cologuard Discontinued Hepatitis B Immunization Aged Out No longer eligible based on patient's age to complete this topic Human Papillomavirus (HPV) Immunization Aged Out No longer eligible based on patient's age to complete this topic Immunochemical Fecal Occult Blood Discontinued Meningococcal Immunization (ACWY) Aged Out No longer eligible based on patient's age to complete this topic Rotavirus Immunization Aged Out No lo nger eligible based on patient's age to complete this topic Procedures Procedure Name Priority Date/Time Associated Diagnosis Comments COLONOSCOPY Routine 11/28/2015 from Last 3 Months or Most Recently Relevant to Health Maintenance Results * HM COLONOSCOPY (11/28/2015) Rafita Benoit MD PROCEDURE/MINOR SURGICAL ORDE JB Final Result from Last 3 Months or Most Recently Relevant to Health Maintenance Insurance MEDICARE Care Teams Folder And Notcher Relationship Specialty Start Date End Date Rafita Benoit MD [address] [place] [address] PCP - General Family Medicine 12/09/16 Piotr Brandt DO Gastroenterology 12/05/15
--- OUTSIDE RECORDS SUMMARY | 2025-05-16 10:08 | XMS_ITS | Clinical Summary ---
Author Organization [facility] Address [address] [place] [address] Care Team Providers Care Staff Nurse Icu Resource Team Name Role Phone Renay Montiel DO Primary Care Provider [phone]- [phone] Elizabeth Melendez MD Unavailable [phone] Allergies Active Allergy Reactions Criticality Noted Date Comments Metoclopramide Mental status changes High 12/02/2015 Nsaids (Non-Steroidal Anti-Inflammatory Drug) Stomach upset Low 10/18/2020 Medications amLODIPine (NORVASC) 2.5 mg tabletIndicat ions:hyperten galen Take 1 tablet (2.5 mg total) by mouth every morning 10/06/20 20 Active cyanocobalami n (Vitamin B-12) 500 mcg tabletIndicat ions:Preventi on of Vitamin B12 Deficiency Take 1 tablet (500 mcg total) by mouth every morning Active esomeprazole DR (NexIUM) 40 mg capsuleIndica tions:Treatme nt of Non-Bleeding Gastric Disorder Take 1 capsule (40 mg total) by mouth every morning Active losartan (COZAAR) 100 mg tabletIndicat ions:hyperten galen Take 1 tablet (100 mg total) by mouth every morning 09/13/20 20 Active atorvastatin (LIPITOR) 10 mg tabletIndicat ions:hyperlip idemia Take 1 tablet (10 mg total) by mouth every morning Active magnesium oxide (MAG-OX) 250 mg (150.8 mg elemental) tabletIndicat ions:hypomagn esemia Take 1 tablet (250 mg total) by mouth every morning Active cholecalcifer ol (VITAMIN D-3) 1,000 unit capsuleIndica tions:Vitamin D Deficiency Take 1 capsule (1,000 Units total) by mouth every morning Active fluticasone propionate (FLONASE) 50 mcg/actuation nasal spray Administer 2 sprays into each nostril daily as needed for allergies Active aspirin 81 mg enteric coated tabletIndicat ions:heart health Take 1 tablet (81 mg total) by mouth every morning Active calcium carbonate/vit rangel D3 (CALCIUM 500 + D ORAL)Indicati ons:supplemen t Take 1 tablet by mouth every morning Active acetaminophen (TYLENOL) 500 mg tablet Take 1 tablet (500 mg total) by mouth every 6 (six) hours as needed for pain or headaches Active Euthyrox 112 mcg tablet TAKE 1 TABLET BY MOUTH ONCE DAILY IN THE MORNING BEFORE BREAKFAST 30 tablet 02/24/20 22 Active hydroCHLOROth iazide (HYDRODIURIL) 12.5 mg tablet hydrochlorothiazide 12.5 mg tablet TAKE 1 TABLET BY MOUTH ONCE DAILY Active gabapentin (NEURONTIN) 300 mg capsule TAKE 1 CAPSULE BY MOUTH NIGHTLY 30 capsule 11/23/19 23 Active gabapentin (NEURONTIN) 100 mg capsule TAKE 2 CAPSULES BY MOUTH ONCE DAILY WITH LUNCH 01/07/20 24 Active Active Problems Problem Noted Date Diagnosed Date Arthritis 11/18/2023 Overview (11/18/2023): knees GERD (gastroesophageal reflux disease) HTN (hypertension) 11/18/2023 Hyperlipidemia 11/18/2023 Hypothyroidism 11/18/2023 Bilateral primary osteoarthritis of hip 07/28/20 22 Trochanteric bursitis of both hips 07/15/2022 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 Overview (02/04/2021): Added automatically from request for surgery [id number] 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 Overview (10/21/2020): Added automatically from request for surgery [id number] Nontoxic multinodular goiter 10/21/2020 Overview (10/21/2020): Added automatically from request for surgery [id number] Nontoxic uninodular goiter 10/21/2020 Overview (10/21/2020): Added automatically from request for surgery [id number] Abnormal mammogram 01/31/2010 Encounters Date Type Department Care Team Description 04/06/2025 Telephone [facility] [address] [place] [address] [address] [place] [address] Ermelinda Trejo NP 03/16/2025 1:30 PM CDT Office Visit [facility] [address] [place] [address] [address] [place] [address] Ermelinda Trejo NP Trochanteric bursitis of both hips (Primary Dx) from Last 3 Months Immunizations Immunization Administration Dates Next Due Influenza, Unspecified 06/10/2020 Surgical History Surgery Date Site/Laterality Comments TOTAL KNEE ARTHROPLASTY 10/11/2010 - 10/10/2011 Bilatera l BREAST MASS EXCISION 10/11/2000 - 10/10/2001 Right benign HYSTERECTOMY 10/11/1984 - 10/10/1985 TYMPANOMASTOIDECTOMY W/ OSSICULOPLASTY 10/11/2020 - 09/12 THYROIDECTOMY 10/11/2020 - 11/10/2020 Medical History Medical History Date Comments GERD (gastroesophageal reflux disease) Hypertension Nontoxic multinodular goiter Osteoarthritis CKD (chronic kidney disease) stage 3, GFR 30-59 ml/min ([facility]) Morbid obesity with BMI of 40.0-44.9, adult ([facility] ) BMI 42 Dyslipidemia Prediabetes Diabetes mellitus ([facility]) Hyperlipidemia Hiatal hernia Family History Medical History Relation Name Comments Clotting disorder Brother Kapil Blake COPD Father Alek Blake Stroke Father Alek Blake Cancer Mother Laurent Blake Anesthesia problems Neg Hx Relation Name Status Comments Brother Kapil Blake Daughter 1 Rhea [place] Daughter 2 Rhea [place] Father Alek Blake Father's Brother Emmanuel Blake Father's Sister 1 Verónica Blake Father's Sister 2 Lila Blake Father's Sister 3 Lilo Blake Mother Laurent Blake Paternal Grandfather Vincenzo Blake Paternal Grandmother Bonny Blake Social History Tobacco Use Types Packs/Day Years Used Date Smoking Tobacco: Never Smokeless Tobacco: Never Tobacco Cessation:Counseling Given: Not Answered Alcohol Use Standard Drinks/Week Comments Never 0 (1 standard drink = 0.6 oz pur e alcohol) AUDIT-C Answer Date Recorded Q1: How often do you have a drink containing alcohol? Never 12/14/2024 Q2: How many drinks containi ng alcohol do you have on a typical day when you are drinking? Patient does not drink Q3: How often do you have si x or more drinks on one occasion? Never 12/14/2024 Comments No Sex and Gender Information Value Date Recorded Sex Assigned at Not on file Legal Sex Female 3:10 AM OFFSET PRINTING OPERATOR Gender Identity Female 10/14/2020 11:24 AM OFFSET PRINTING OPERATOR Sexual Orientation Straight 10/14/2020 11 :24 AM OFFSET PRINTING OPERATOR Obstetrics History Last Filed Vital Signs Vital Sign Reading Time Taken Comments Blood Pressure 165/82 03/16/2025 1:25 PM CDT Pulse 82 03/16/2025 1:25 PM CDT Temperature 24.4 C (76 F) 07/28/2022 9:27 AM CDT Respiratory Rate 18 12/14/2024 9:27 AM OFFSET PRINTING OPERATOR Oxygen Saturation 95% 08/15/2021 4:40 PM CDT Inhaled Oxygen Concentration - - Weight 104.6 kg (230 lb 9.6 oz) 03/16/2025 1:25 PM CDT Height 154.9 cm (5' 1) 03/16/2025 1:25 PM CDT Body Mass Index 43.57 03/16/2025 1:25 PM CDT Plan of Treatment Health Maintenance Due Date Last Done Comments Depression Screening 1945 Hepatitis C Screening 1945 Osteoporosis Screening-Bone Density Scan 1945 Hepatitis B Screening 12/26/1963 Pneumococcal vaccine 65+ (1 of 1 - PCV) 12/26/1995 Well Visit 65+ 2010 Zoster Vaccine (2 of 3) 11/03/2015 09/08/2015 DTaP/Tdap/Td Vaccine (1 - Tdap) 12/10/2017 03/01/201 8 Fall Risk Assessment 08/15/2022 08/15/2021 Covid-19 Vaccine (3 - 4-2 5 season) 2024 12/16/2020, 11/15/2020 Influenza Vaccine (#1) 2025 0, 07/06/2019, 07/11/2018, Additional history exists Medical Devices Implanted Type Area Agronomy Instructor Device Identifier Shelf Expiration Date Model / Serial / Lot Total Joint Bilateral: Knee Procedures Procedure Name Priority Date/Time Associated Diagnosis Comments SC ARTHROCENTESIS ASPIR&/INJ MAJOR JT/BURSA W/O US Routine 03/16/2025 1:30 PM CDT Trochanteric bursitis of both hips from Last 3 Months Results * SC ARTHROCENTESIS ASPIR&/INJ MAJOR JT/BURSA W/O US (03/16/2025 1:30 PM CDT) Narrative Saud Gonzalez MD - 03/16/2025 1:30 PM CDT Saud Gonzalez MD 03/19/2025 8:00 AM Greater trochanteric bursa injection Performed by: Ermelinda Trejo NP Authorized by: Ermelinda Trejo NP Greater Trochanteric Bursa Injection: Consent Given by: Patient Site marked: the procedure site was marked Timeout: prior to procedure the correct patient, procedure, and site was verified Verbal consent obtained?: Yes Prior to the start of the procedure, verbal verification by the procedure participant(s) confirmed (as applicable): corect patient idenity; correct site/side marked and visible; agreement on the procedure to be done; correct patient positioning; an accurate procedure consent form, relevant images and results correctly labeled and displayed; any safety precautions based on clinical history and/or medication use have been addressed.: Supporting Documentation: Indications: Pain and therapeutic Procedure Details: Site: Left Greater Trochanteric Bursa Prep: patient was prepped and draped in usual sterile fashion Patient position: Sidelying Needle Size: 22 G Ultrasound guidance: No Approach: Lateral Medications: 80 mg methylPREDNISolone acetate 80 mg/mL; 4 mL lidocaine 20 mg/mL (2 %) Patient tolerance: Patient tolerated the procedure well with no immediate complications us Ermelinda Trejo DIRECTOR DENTAL SERVICES IN CLINIC/BEDSIDE ORDER [place] Final Result from Last 3 Months Insurance [place] [id number] [facility] MEDICARE ADVANTAGE UHC MEDICARE ADVANTAGE Member Subscriber Plan / Payer (Ef fective 2020-Present) Name:Flower Austin Relation to Subscriber:Self Name:Austin, Flower Amos Payer ID:[id number] (NAIC) Type:[facility] MEDICARE Address: [place] [id number] [facility] [place] [id number] Advance Directives For more information, please contact: [phone] * Full Code (Latest Code Status on File) Date Activated Date Inactivated Comments 10/28/2020 2:46 PM 10/29/2020 3:20 PM Care Teams Staff Nurse Icu Resource Team Relationship Specialty Start Date End Date Renay Montiel DO PCP - General Family Medicine 10/15/20 Elizabeth Melendez MD [address] [address] Consulting Physician Otolaryngology 11/04/20
== END 2025-05-16 09:45 | disposition home or self-care (01) ==
LOC: ANHAUDIO 09:44
PROVIDERS: PCP Family Medicine; Visit Provider Otolaryngology Otolaryngology/Facial Plastic Surgery
DX: H74.8X2 Other specified disorders of left middle ear and mastoid (principal); H93.8X2 Other specified disorders of left ear; R42 Dizziness and giddiness; Z98.890 Other specified postprocedural states
CPT/HCPCS: 92557; 92567

== ENCOUNTER 2025-07-04 08:41 | Outpatient (CLI) | payer MEDICARE, SELFPAY ==
--- OUTSIDE RECORDS SUMMARY | 2025-07-04 09:03 | XMS_ITS | Clinical Summary ---
Author Organization [facility] Address [address] [place] [address] Phone Care Team Providers Care Drier Tender Naphthalene Name Role Phone Rafita Benoit MD Primary Care Provider [phone] Allergies No known active allergies Medications levothyroxine [...] Negrete [address] [place] [id number] Other: Problem Noted Date Diagnosed Date Abnormal [...] on file Legal Sex Female 5:52 AM SUSTAINABILITY EXECUTIVE DIRECTOR Gender Identity Not on file Sexual Orientation [...] series) 2020 INFLUENZA VACCINE (#1) 2025 Insurance [facility] OPTIONS PPO [id number] MEDICARE PART A AND B Care Teams Drier Tender Naphthalene Relationship Specialty Start Date End Date Rafita Benoit MD [address] [place] [address] PCP - General Family Practice 01/31/10
--- OUTSIDE RECORDS SUMMARY | 2025-07-04 09:03 | XMS_ITS | Clinical Summary ---
Author Organization [facility] Address [address] [address] Phone Care Team Providers Care Cutting And Splicing Supervisor Name Role Phone Piotr Brandt DO Unavailable [phone] Rafita Benoit MD Primary Care Provider [phone] Allergies Active Allergy Reactions Criticality Noted Date [...] to Health Maintenance Insurance MEDICARE Care Teams Cutting And Splicing Supervisor Relationship Specialty Start Date End Date Rafita Benoit MD [address] [place] [id number] PCP - General Family Medicine 12/09/16 Piotr Brandt DO Gastroenterology 12/05/15
--- OUTSIDE RECORDS SUMMARY | 2025-07-04 09:03 | XMS_ITS | Clinical Summary ---
Author Organization [facility] Address [address] [facility] [place] [address] Care Team Providers Care Paint Trimmer Pipe Bowls Name Role Phone Renay Montiel DO Primary Care Provider [phone]- [phone] Elizabeth Melendez MD Unavailable [phone] Allergies Active Allergy Reactions Criticality Noted Date [...] ONCE DAILY WITH LUNCH 01/07/20 24 Active Hospital, Clinic, or Other Facility Administered Medication Ordered Dose Route Frequency Start Date End Date Status lidocaine (XYLOCAINE) 20 mg/mL (2 %) injection 4 mLIndications:Admi nistration of Local Anesthesia 4 mL OTHER One-Time Injection 06/19/2025 06/19/2025 Ended methylPREDNISolone acetate (DEPO-medrol) injection 80 mgIndications:Troc hanteric bursitis of both hips 80 mg intra-artic One-Time Injection 06/19/2025 06/19/2025 Ended Active Problems Problem Noted Date Diagnosed Date Arthritis 11/18/2023 Overview (11/18/2023): knees GERD (gastroesophageal reflux disease) HTN (hypertension) 11/18/2023 Hyperlipidemia 11/18/2023 Hypothyroidism 11/18/2023 Bilateral primary osteoarthritis of hip 07/28/20 22 Trochanteric bursitis of both hips 07/15/2022 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 Overview (02/04/2021): Added automatically from request for surgery [id number] 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 Overview (10/21/2020): Added automatically from request for surgery [id number] Nontoxic multinodular goiter 10/21/2020 Overview (10/21/2020): Added automatically from request for surgery [id number] Nontoxic uninodular goiter 10/21/2020 Overview (10/21/2020): Added automatically from request for surgery [id number] Abnormal mammogram 01/31/2010 Encounters Date Type Department Care Team Description 06/19/2025 9:15 AM CDT Office Visit [facility] Medicine [address] [place] [address] [address] [place] [address] Jade Son PA Trochanteric bursitis of both hips (Primary Dx) 04/06/2025 Telephone [facility] [address] [place] [address] [address] [place] [address] Ermelinda Trejo NP from Last 3 Months Immunizations Immunization Administration [...] kidney disease) stage 3, GFR 30-59 ml/min ([facility]) Morbid obesity with BMI of 40.0-44.9, adult (HCC ) BMI 42 Dyslipidemia Prediabetes Diabetes mellitus Hyperlipidemia Hiatal hernia Family History Medical History [...] on file Legal Sex Female 3:10 AM ENVIRONMENTAL REMEDIATION CONSULTANT Gender Identity Female 10/14/2020 11:24 AM ENVIRONMENTAL REMEDIATION CONSULTANT Sexual Orientation Straight 10/14/2020 11 :24 AM ENVIRONMENTAL REMEDIATION CONSULTANT Obstetrics History Last Filed Vital Signs Vital Sign Reading Time Taken Comments Blood Pressure 181/88 06/19/2025 9:14 AM CDT Pulse 67 06/19/2025 9:14 AM CDT Temperature 24.4 C (76 F) 07/28/2022 9:27 AM CDT Respiratory Rate 18 12/14/2024 9:27 AM ENVIRONMENTAL REMEDIATION CONSULTANT Oxygen Saturation 95% 08/15/2021 4:40 PM CDT Inhaled Oxygen Concentration - - Weight 107 kg (236 lb) 06/19/2025 9:14 AM CDT Height 154.9 cm (5' 1) 06/19/2025 9:14 AM CDT Body Mass Index 44.59 06/19/2025 9:14 AM CDT Plan of Treatment Health Maintenance Due Date Last Done Comments Depression Screening 1945 Hepatitis C Screening 1945 Osteoporosis Screening-Bone Density Scan 1945 Hepatitis B Screening 12/26/1963 Well Visit 65+ 2010 Fall Risk Assessment 08/15/2022 08/15/2021 Covid-19 Vaccine (6 - 2024-2 6 season) 2025 08/14/2023, 01/11/2022, 08/24/2021, Additional history exists Influenza Vaccine (#1) 2025 , 06/17/2023, 07/07/2021, Additional history exists DTaP/Tdap/Td Vaccine (3 - Td or Tdap) 12/10/2027 12/09/2017, 09/09/2007, 11/20/1996 Pneumococcal vaccine 65+ Completed 11/05/2014, 06/11 Zoster Vaccine Completed 05/09/2023, 01/10, 09/08/2015 Medical Devices Implanted Type Area Rough Rice Grader Device Identifier Shelf Expiration Date Model / Serial / Lot Total Joint Bilateral: Knee Procedures Procedure Name Priority Date/Time Associated Diagnosis Comments ND ARTHROCENTESIS ASPIR&/INJ MAJOR JT/BURSA W/O US Routine 06/19/2025 9:15 AM CDT Trochanteric bursitis of both hips from Last 3 Months Results * ND ARTHROCENTESIS ASPIR&/INJ MAJOR JT/BURSA W/O US (06/19/2025 9:15 AM CDT) Narrative Saud Gonzalez MD - 06/19/2025 9:15 AM CDT Saud Gonzalez MD 06/19/2025 3:23 PM Greater trochanteric bursa injection Performed by: Jade Son PA Authorized by: Jade Son PA Greater Trochanteric Bursa Injection: Consent Given by: [...] procedure well with no immediate complications us Jade LAYNE IN CLINIC/BEDSIDE ORD ERABLES Final Result from Last 3 Months Insurance UHC MEDICARE ADVANTAGE [facility] MEDIC[facility] Address: [address] [address] UHC MEDICARE ADVANTAGE [facility] MEDICARE Address: [facility] [address] [place] [address] Advance Directives For more information, please contact: [phone] * Full Code (Latest Code Status on File) Date Activated Date Inactivated Comments 10/28/2020 2:46 PM 10/29/2020 3:20 PM Care Teams Paint Trimmer Pipe Bowls Relationship Specialty Start Date End Date Renay Montiel DO PCP - General Family Medicine 10/15/20 Elizabeth Melendez MD [address] [address] Consulting Physician Otolaryngology 11/04/20
--- OUTSIDE RECORDS SUMMARY | 2025-07-04 09:03 | XMS_ITS | Encounter Summary ---
Author Organization [facility] Address [address] [place] [address] Phone Care Team Providers Care Convention Planner Name Role Phone Renay Montiel DO Primary Care Provider [phone] Elizabeth Melendez MD Unavailable [phone] Encounter Details Date Type Department Care Team (Late st Contact Info) Description 08/04/2021 Orders Only [facility] [phone] Scanning, Provider Social History Tobacco Use Types [...] on file Legal Sex Female 3:10 AM MARKETING PLANNER Gender Identity Female 10/14/2020 11:24 AM MARKETING PLANNER Sexual Orientation Straight 10/14/2020 11 :24 AM MARKETING PLANNER documented as of this encounter Functional Status [...] on filedocumented in this encounter Care Teams Convention Planner Relationship Specialty Start Date End Date Renay Montiel DO PCP - General Family Medicine 10/15/20 Elizabeth Melendez MD [address] [address] Consulting Physician Otolaryngology 11/04/20 documented as of this encounter
--- NOTE | 2025-07-04 09:09 | ECG_ITS ---
Test Date: 2025-07-04 09:25:34 Measurements Intervals [place] Rate: 60 P: 20 MD: 160 QRS: -17 QRSD: 122 T: 76 QT: 415 QTc: 418 Interpretive Statements SINUS RHYTHM LEFT VENTRICULAR HYPERTROPHY AND ST-T CHANGE [VOLTAGE CRITERIA PLUS ST/T ABNORMALITY] ABNORMAL ECG No previous ECG available for comparison Electronically Signed On 07-05-2025 12:35:30 CDT by Mike Interiano M.D.
[2025-07-04 09:53] LABS: Anion Gap 7 mmol/L (4-12); Blood Urea Nitrogen 14 mg/dL (7-17); Calcium 9.2 mg/dL (8.4-10.2); Carbon Dioxide 32 mmol/L (22-30); Chloride 102 mmol/L (98-107); Estimated Glomerular Filt Rate 44; Glucose 112 mg/dL (65-110); Potassium 4.2 mmol/L (3.4-5.0); Sodium 141 mmol/L (137-145)
== END 2025-07-04 08:42 | disposition home or self-care (01) ==
PROVIDERS: PCP Family Medicine; Visit Provider Anesthesiology
DX: I12.9 Hypertensive chronic kidney disease with stage 1 through stage 4 chronic kidney disease, or unspecified chronic kidney disease (principal); N18.30 Chronic kidney disease, stage 3 unspecified; T50.2X5A Adverse effect of carbonic-anhydrase inhibitors, benzothiadiazides and other diuretics, initial encounter; E78.2 Mixed hyperlipidemia
CPT/HCPCS: 36415; 80048; 93005

== ENCOUNTER 2025-07-10 05:45 | Day surgery (SDC) | payer MEDICARE, SELFPAY ==
[2025-07-03 10:51] VITALS: BMI 43.7
--- NOTE | ~2025-07-10 | XR_ITS ---
EXAMINATION: XR fluoroscopy no charge DATE: 07/10/2025 08:22 INDICATION: Minimally invasive lumbar decompression bilaterally at L3-L4 and L4-L5 TECHNIQUE: 214 images of the lower lumbar spine were obtained during procedure performed by Dr. Tracy. Radiologist was not present for the imaging or procedure. The amount of fluoroscopy time used during this procedure was 5.9 minutes. Curious of radiation dose of 364.22 mGy. COMPARISON: None. FINDINGS/IMPRESSION: Fluoroscopy utilized during reported lumbar decompression bilaterally at L3-L4 and L4-L5. See procedure note for further detail. Reviewed, dictated and finalized at location A.
--- OUTSIDE RECORDS SUMMARY | 2025-07-10 05:58 | XMS_ITS | Encounter Summary ---
Author Organization [facility] Address [address] [place] [address] Phone Care Team Providers Care Bookstore Clerk Name Role Phone Renay Montiel DO Primary Care Provider [phone] Elizabeth Melendez MD Unavailable [phone] Encounter Details Date Type Department Care Team (Late st Contact Info) Description 08/04/2021 Orders Only [facility] [phone] Scanning, Provider Social History Tobacco Use Types [...] on file Legal Sex Female 3:10 AM LOADING AND UNLOADING SUPERVISOR Gender Identity Female 10/14/2020 11:24 AM LOADING AND UNLOADING SUPERVISOR Sexual Orientation Straight 10/14/2020 11 :24 AM LOADING AND UNLOADING SUPERVISOR documented as of this encounter Functional Status [...] on filedocumented in this encounter Care Teams Bookstore Clerk Relationship Specialty Start Date End Date Renay Montiel DO PCP - General Family Medicine 10/15/20 Elizabeth Melendez MD [address] [address] Consulting Physician Otolaryngology 11/04/20 documented as of this encounter
--- OUTSIDE RECORDS SUMMARY | 2025-07-10 05:58 | XMS_ITS | Clinical Summary ---
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 Overview (10/21/2020): Added automatically from request for surgery [id number] Nontoxic multinodular goiter 10/21/2020 Overview (10/21/2020): Added automatically from request for surgery [id number] Nontoxic uninodular goiter 10/21/2020 Overview (10/21/2020): Added automatically from request for surgery [id number] Abnormal mammogram 01/31/2010 Encounters Date Type Department Care Team Description 06/19/2025 9:15 AM CDT Office Visit [facility] Orth[facility] and Sports Medicine [address] [place] [phone] Jade Son PA Trochanteric bursitis of both [...] kidney disease) stage 3, GFR 30-59 ml/min (HCC) Morbid obesity with BMI of 40.0-44.9, adult ([facility] ) BMI 42 Dyslipidemia Prediabetes Diabetes mellitus Hyperlipidemia Hiatal hernia Family History Medical History Relation Name Comments Clotting disorder Brother Kapil Blake COPD Father Alek Blake Stroke Father Alek Blake Cancer Mother Francoise Lou Anesthesia problems Neg Hx Relation Name Status [...] on file Legal Sex Female 3:10 AM MANAGER HYDRAULIC Gender Identity Female 10/14/2020 11:24 AM MANAGER HYDRAULIC Sexual Orientation Straight 10/14/2020 11 :24 AM MANAGER HYDRAULIC Obstetrics History Last Filed Vital Signs Vital Sign Reading Time Taken Comments Blood Pressure 181/88 06/19/2025 9:14 AM CDT Pulse 67 06/19/2025 9:14 AM CDT Temperature 24.4 C (76 F) 07/28/2022 9:27 AM CDT Respiratory Rate 18 12/14/2024 9:27 AM MANAGER HYDRAULIC Oxygen Saturation 95% 08/15/2021 4:40 PM CDT [...] 01/10, 09/08/2015 Medical Devices Implanted Type Area Animal Assisted Therapist Device Identifier Shelf Expiration Date Model / Serial / Lot Total Joint Bilateral: Knee Procedures Procedure Name Priority Date/Time Associated Diagnosis Comments SC ARTHROCENTESIS ASPIR&/INJ MAJOR JT/BURSA W/O US Routine 06/19/2025 9:15 AM CDT Trochanteric bursitis of both hips from Last 3 Months Results * SC ARTHROCENTESIS ASPIR&/INJ MAJOR JT/BURSA W/O US (06/19/2025 [...] Final Result from Last 3 Months Insurance MEDICARE ADVANTAGE [facility] MEDIC[facility] Address: [address] [address] UHC MEDICARE ADVANTAGE [facility] Address: [place] [id number] [place] [address] Advance Directives For more information, please contact: [phone] * Full Code (Latest Code Status on File) Date Activated Date Inactivated Comments 10/28/2020 2:46 PM 10/29/2020 3:20 PM Care Teams Oil Refiner Relationship Specialty Start Date End Date Dinesh Renay NewberryDO PCP - General Family Medicine 10/15/20 Elizabeth Melendez MD [address] [address] Consulting Physician Otolaryngology 11/04/20
--- OUTSIDE RECORDS SUMMARY | 2025-07-10 05:58 | XMS_ITS | Clinical Summary ---
Author Organization [facility] Address [address] [place] [address] Phone Care Team Providers Care Sales Route Driver Name Role Phone Rafita Benoit MD Primary Care Provider [phone] Allergies No known active allergies Medications levothyroxine [...] Negrete [address] [place] [id number] Other: Problem Noted Date Diagnosed Date Abnormal [...] on file Legal Sex Female 5:52 AM PEARL GLUE DRIER Gender Identity Not on file Sexual Orientation [...] series) 2020 INFLUENZA VACCINE (#1) 2025 Insurance [facility] OPTIONS PPO [id number] MEDICARE PART A AND B Care Teams Sales Route Driver Relationship Specialty Start Date End Date Rafita eBnoit MD [address] [place] [address] PCP - General Family Practice 01/31/10
[2025-07-10 06:20] VITALS: BP 193/74; PULSE 62; RESP 18; TEMP 36.6; O2SAT 98
[2025-07-10] MEDS: LACTATED RINGERS 1,000 ML 30 ML IV CONT (06:40)
[2025-07-10 06:50] VITALS: BP 155/76
--- NOTE | 2025-07-10 07:12 | WPDANESEPPF ---
Anes - Initial Pre Proc Eval Procedure: Operation Date: 07/10/25 07:30 Proposed Procedures p Minimally Invasive Lumbar Decompression Bilateral L3-4, L4-5 under Fluoroscopic Guidance, Possible Epidurogram - Jose Tracy MD Date/Time: 07/10/25 07:12 Surgeon: Jose Tracy MD Pre Op Diagnosis: spinal stenosis lumbar region Patient Data Age: 79 Gender: F Height: 1.55 m Weight: 104.6 kg Last Vital Signs Temp 97.8 F 07/10/25 06:20 Pulse 62 07/10/25 06:20 Resp 18 07/10/25 06:20 BP 155/76 H 07/10/25 06:50 Pulse Ox 98 07/10/25 06:20 O2 Del Method Room Air 07/10/25 06:20 Allergies Allergy/AdvReac Type Severity Reaction Status Date / Time metoclopramide (From Reglan) AdvReac Severe Confusion Verified 07/10/25 06:24 NSAIDS (Non-Steroidal AdvReac Intermediate gerd Verified 07/10/25 06:24 Anti-Inflamma Home Medications ?Medication ?Instructions ?Recorded ?Confirmed ?Type aspirin 81 mg tablet,delayed 81 mg PO DAILY 10/24/19 07/10/25 History release magnesium 250 mg tablet 250 mg PO DAILY 10/24/19 07/10/25 History cholecalciferol (vitamin D3) 25 25 mcg PO DAILY 04/09/21 07/10/25 History mcg (1,000 unit) capsule calcium carbonate (Calcium 600) 600 mg PO DAILY 11/05/21 07/10/25 History amlodipine 2.5 mg tablet See Rx Instructions .Route 01/22/25 07/10/25 Rx .COMPLEX #90 tabs hydrochlorothiazide 12.5 mg tablet See Rx Instructions .Route 01/22/25 07/10/25 Rx .COMPLEX #90 tabs losartan 100 mg tablet See Rx Instructions .Route 01/22/25 07/10/25 Rx .COMPLEX #90 tabs gabapentin 100 mg capsule 200 mg (2 x 100 mg) PO DAILY #180 02/20/25 07/10/25 Rx caps atorvastatin 10 mg tablet See Rx Instructions .Route 04/19/25 07/10/25 Rx .COMPLEX #90 tabs esomeprazole magnesium 40 mg See Rx Instructions .Route 04/23/25 07/10/25 Rx capsule,delayed release .COMPLEX #90 caps fluticasone propionate 50 See Rx Instructions .Route 04/24/25 07/10/25 Rx mcg/actuation nasal .COMPLEX #16 grams spray,suspension gabapentin 300 mg capsule 300 mg PO QHS #90 caps 05/14/25 07/10/25 Rx levothyroxine 112 mcg tablet 112 mcg PO DAILY #90 tabs 05/14/25 07/10/25 Rx Patient hx anesthesia problems: none Family hx anesthesia problems: none Results Review: All pre-operative results and documents have been reviewed as part of the pre-operative evaluation. [facility] Past Medical History Medical History Spinal stenosis, lumbar region with neurogenic claudication Colon polyps High cholesterol Thyroid disease Pupil dilation Hepatitis C antibody test negative (03/31/17) Surgical History Surgical History History of thyroidectomy History of parotidectomy History of tympanomastoidectomy H/O mastoidectomy H/O thyroidectomy (~2020) History of knee replacement (~2010) H/O: hysterectomy (~1979) Partical H/O colonoscopy Family History Family History Father Family history of chronic obstructive pulmonary disease Hypertension Family history of elevated blood lipids Cerebrovascular accident Family history of coronary artery disease Mother Carcinoma of colon Other Asthma Diabetes mellitus Family history of congenital heart disease Family history of malignant neoplasm of breast in first degree relative Family history of osteoporosis Social History Social History Social History: Caffeine-decaf coffee Smoking status: Never smoker Second hand tobacco smoke exposure: No Alcohol intake: never Substance use: never Substance use type: does not use Do You Feel Safe in your Home?: Yes Lack of Transportation: No Lack of Food: Never True Current Housing: I Have Housing Concerned About Future Housing: No Difficulty Paying Gas/Electric Bills: No Difficulty Paying for Meds: No Currently Unemployed: No Education: High School Diploma/GED Difficulty w/ Childcare or Family Care: No Living arrangements: alone Gender identity (if verbalized by the patient): Female Spiritual care concerns: No Anes - Eval Final PreProcedure Day of Procedure 07/10/25 07:12 Heart: regular rate and rhythm Lungs: clear to auscultation Airway: Mallampati scale class III Neurological: alert and oriented Last oral intake: >/= 8 hours ASA classification: III Anesthetic plan: proceed Anesthesia type and monitoring: monitored anesthesia care Results Review: All pre-operative results and documents have been reviewed as part of the pre-operative evaluation. Informed Consent: The patient's anesthetic plan and its attendant risks and benefits were discussed with the patient/family/POA. Questions were solicited and answers provided to the satisfaction of the patient/family/POA.
--- NOTE | 2025-07-10 07:16 | PM.HPGS ---
History of Present Illness History of Present Illness Consent: Risks, benefits, and alternatives have been discussed and questions answered. Patient agrees to proceed with procedure. Chief complaint: Lumbar spinal stenosis with neurogenic claudicatio Narrative: Flower Austin is a 79 year old female with chronic, recalcitrant and disabling bilateral low back and lower extremity pain secondary to S lumbar spinal stenosis with ligamentum flavum hypertrophy with failure to respond to aggressive conservative measures including PT, oral and topical analgesics, opioid and nonopioid analgesics, rest, time and activity/behavioral modification over the past 1-2 years who presents for minimally invasive lumbar decompression of the bilateral L3-4, L4-5 intervertebral levels under fluoroscopic guidance with possible epidurogram. Review of Systems Review of Systems: Patient denies any new infectious, allergic, cardiopulmonary, neurologic or constitutional symptoms or changes in activity tolerance or exercise capacity including new or progressive SOB/STOREY, peripheral edema, productive cough, dysuria, nausea/vomiting, diarrhea, weight change, fevers/chills/night sweats, new or progressive neurologic deficit, cognitive or mood changes since last seen, except as documented in the HPI. All systems reviewed & are unremarkable except as noted in HPI and below PMFSH Past Medical History Medical History Spinal stenosis, lumbar region with neurogenic claudication Colon polyps High cholesterol Thyroid disease Pupil dilation Hepatitis C antibody test negative (03/31/17) Surgical History Surgical History History of thyroidectomy History of parotidectomy History of tympanomastoidectomy H/O mastoidectomy H/O thyroidectomy (~2020) History of knee replacement (~2010) H/O: hysterectomy (~1979) Partical H/O colonoscopy Family History Family History Father Family history of chronic obstructive pulmonary disease Hypertension Family history of elevated blood lipids Cerebrovascular accident Family history of coronary artery disease Mother Carcinoma of colon Other Asthma Diabetes mellitus Family history of congenital heart disease Family history of malignant neoplasm of breast in first degree relative Family history of osteoporosis Social History Social History Social History: Caffeine-decaf coffee Smoking status: Never smoker Second hand tobacco smoke exposure: No Alcohol intake: never Substance use: never Substance use type: does not use Do You Feel Safe in your Home?: Yes Lack of Transportation: No Lack of Food: Never True Current Housing: I Have Housing Concerned About Future Housing: No Difficulty Paying Gas/Electric Bills: No Difficulty Paying for Meds: No Currently Unemployed: No Education: High School Diploma/GED Difficulty w/ Childcare or Family Care: No Living arrangements: alone Gender identity (if verbalized by the patient): Female Spiritual care concerns: No Meds Home Medications and Allergies Home Medications ?Medication ?Instructions ?Recorded ?Confirmed ?Type aspirin 81 mg tablet,delayed 81 mg PO DAILY 10/24/19 07/10/25 History release magnesium 250 mg tablet 250 mg PO DAILY 10/24/19 07/10/25 History cholecalciferol (vitamin D3) 25 25 mcg PO DAILY 04/09/21 07/10/25 History mcg (1,000 unit) capsule calcium carbonate (Calcium 600) 600 mg PO DAILY 11/05/21 07/10/25 History amlodipine 2.5 mg tablet See Rx Instructions .Route 01/22/25 07/10/25 Rx .COMPLEX #90 tabs hydrochlorothiazide 12.5 mg tablet See Rx Instructions .Route 01/22/25 07/10/25 Rx .COMPLEX #90 tabs losartan 100 mg tablet See Rx Instructions .Route 01/22/25 07/10/25 Rx .COMPLEX #90 tabs gabapentin 100 mg capsule 200 mg (2 x 100 mg) PO DAILY #180 02/20/25 07/10/25 Rx caps atorvastatin 10 mg tablet See Rx Instructions .Route 04/19/25 07/10/25 Rx .COMPLEX #90 tabs esomeprazole magnesium 40 mg See Rx Instructions .Route 04/23/25 07/10/25 Rx capsule,delayed release .COMPLEX #90 caps fluticasone propionate 50 See Rx Instructions .Route 04/24/25 07/10/25 Rx mcg/actuation nasal .COMPLEX #16 grams spray,suspension gabapentin 300 mg capsule 300 mg PO QHS #90 caps 05/14/25 07/10/25 Rx levothyroxine 112 mcg tablet 112 mcg PO DAILY #90 tabs 05/14/25 07/10/25 Rx Allergies Allergy/AdvReac Type Severity Reaction Status Date / Time metoclopramide (From Reglan) AdvReac Severe Confusion Verified 07/10/25 06:24 NSAIDS (Non-Steroidal AdvReac Intermediate gerd Verified 07/10/25 06:24 Anti-Inflamma Vital Signs Vital Signs - 24 hr 07/10/25 06:20 07/10/25 06:50 Temperature 97.8 F Pulse Rate 62 Respiratory Rate 18 Blood Pressure 193/74 H 155/76 H Pulse Oximetry 98 Oxygen Delivery Room Air Exam Narrative: The patient's physical exam is essentially unchanged from prior examination on 06/04/2025. Specifically, patient demonstrates normal lung capacity, tidal volume and respiratory rate without wheezes, crackles, rales or rubs. Heart rate and rhythm are regular without murmurs, gallops or rubs. No JVD. Pulses 2+ globally without increasing peripheral edema. AAOx3 with no evidence of confusion, intoxication or altered mental state, NC/AT without acute distress or altered consciousness. Speech, cognition, mood, insight and judgment at baseline and within normal limits. Assessment and Plan Assessment and plan (1) Spinal stenosis, lumbar region with neurogenic claudication: Code(s): M48.062 - Spinal stenosis, lumbar region with neurogenic claudication Status: Acute Assessment and Plan: Proceed as planned with minimally invasive lumbar decompression of the bilateral L3-4, L4-5 intervertebral levels under fluoroscopic guidance with possible epidurogram. (2) Chronic pain: Code(s): G89.29 - Other chronic pain Status: Acute
--- NOTE | 2025-07-10 07:19 | WPDHPUPDATE1 ---
History and Physical Update Update Date/Time: 07/10/25 07:19 History and Physical has been reviewed, including an updated exam of the patient. There are NO changes in the patient's condition. Risks, benefits, and alternatives have been discussed and questions answered. Patient agrees to proceed with procedure.
[2025-07-10] MEDS: LIDOCAINE 2% PF LOCAL INJ 5 ML VIAL 10 ML INFILTRATE (08:11)
[2025-07-10] MEDS: EPINEPHRINE INFILTRATE (08:11)
[2025-07-10] MEDS: MARCAINE 0.5% INFILTRATE (08:11)
[2025-07-10] MEDS: [UNRECOGNIZED DRUG - OTHER] INFILTRATE (08:11)
--- NOTE | 2025-07-10 08:17 | SUR.OPER ---
mild device kit-- ref- [id number] EXP 2028-05-08 LOT- [id number]
--- NOTE | 2025-07-10 08:26 | W.PM.PROC2 ---
Procedure Note - Detailed Date of Procedure 07/10/25 Pre-op Diagnosis Lumbar spinal stenosis with neurogenic claudication Post-op Diagnosis Same Procedure Performed Bilateral Minimally Invasive Lumbar Decompression (MILD) at L3-4, L4-5 with Intra-operative Interlaminar Epidural Access for Epidurogram under Fluoroscopic Guidance. Surgeon Jose Tracy MD Seed Expert None Anesthesia Other ([Moderate IV sedation/MAC] with local anesthetic infiltration in the prone position) Description of Procedure INFORMED CONSENT: Risks, benefits, and alternatives to the procedure were discussed in detail with the patient who expressed explicit understanding and consent to proceed. Risks discussed with the patient included but were not limited to risk of serious local or systemic infection, bleeding/bruising, epidural hematoma, dural puncture or tear resulting in CSF leak and acute or chronic post-dural puncture headache, scarring/deformity, immediate or delayed allergic reaction, decreased mobility, failure to treat pain, inadvertent neurologic injury resulting in increased pain, weakness/paralysis or numbness, inadvertent organ injury, need for additional surgery, allergic reaction, heart attack, stroke, seizure, coma, . Anesthetic risks were also briefly discussed by myself and the fox raiser. The patient expressed understanding and consent to proceed, agreeing that potential benefits outweigh risk of harm. All materials required for the procedure were immediately available prior to procedure start. Site and side were confirmed with the patient, compared carefully to the patient chart and consent, and marked prior to transport to the operating room. Appropriate time out procedure was performed per protocol prior to procedure start. PROCEDURE IN DETAIL: The patient was brought to the operative suite and placed in the prone position. Appropriate ASA standard monitors were attached. Anesthesia was initiated without difficulty or event. Eyes were protected. Pressure points were padded with joints in neutral position. When appropriate, breasts and genitals were evaluated and protected. Eyes were checked and were free from undue pressure. Skin overlying the procedure site was marked with sterile marker. Surgical area was prepared in a typical sterile fashion with ChloraPrep and allowed to dry for at least 3 minutes prior to sterilely draping the surgical site. The lumbar spine was identified in the AP fluoroscopic view with slight cephalad tilt perfectly aligning the endplates at the targeted levels with spinous processes bisecting the transpedicular plane. After identifying the intended incision site approximately 1.5 levels inferior to the level of interest, the area was anesthetized by infiltration with no more than 10ml of a 1:1 admixture of 0.5% PF bupivacaine with epinephrine and 2% PF lidocaine with epinepherine via a 27-gauge needle after negative aspiration. A 22-gauge spinal needle was used to provide additional and adequate local anesthesia to the level of the interspinous ligament, ligamentum flavum and the periosteum of the lamina at the intended treatment levels. In the AP view, a #11 scalpel blade was used to create a single stab incision at the intended incision site on the targeted side. The Vertos MILD kit was opened and the included cannula and trocar assembly was advanced through the incision to contact the midportion of the right lamina just adjacent to the spinous process at L5. Once seated, the lateral view was used to gauge depth demonstrating the most anterior tip of the trocar posterior to the epidural space at all times. The automotive exhaust emissions technician-provided cannula stabilizer was placed over the trocar flush to the patient's lumbar flank. Cannula obturator with handle was removed. Included depth guide was then attached to the insertion port on the cannula and set to an intitial depth of 15 mm. The bone rongeur was advanced to the depth of the lumbar lamina at the targeted level. Depth gauge was then adjusted allowing rongeur tip to advance in the contralateral oblique view to the anterior border of the superior and inferior lamina at the respective intervertebral foramen. Multiple passes of the rongeur were used in the contralateral oblique view to remove single small portions of ligament and bone in a 360-degree distribution, approximately 3-5 passes on each lamina, until appropriate access to the superior and inferior attachments of the ligamentum flavum was created at the surgical level right L4-5. Each individual portion of bone removed was extracted, collected and discarded. Rongeur was removed and replaced with a tissue sculpter which was deployed from inferior to superior in the contralateral oblique view to delaminate the ligamentum flavum at the intended level with serial groupings of three passes each, 6-9 total per side treated. Tissue extracted was discarded. At no point did the rongeur or tissue sculpter violate the anterior border of the ligament as evidenced by intact interface at the ligament/epidural border. The same procedure was repeated in the exact same fashion, utilizing the initial stab incision, to effectively debulk the ligamentum flavum and decompress the central spinal canal on the right at L3-4, with similar results and no evidence of complication. The same exact procedure was then repeated in the exact same fashion, utilizing a new stab incision on the contralateral side, to effectively debulk the ligamentum flavum and decompress the central spinal canal on the left at L3-4, L4-5. Bone and tissue sculpters were withdrawn, obturator replaced and trocar removed in the lateral view, entirely and without difficulty. Hemostasis was obtained and confirmed. Mastisol was placed around the incision site(s) and Steri-Strips were placed in a opal-crossing fashion across the wound(s), which were then covered with Telfa dressing and Tegaderm. The patient was converted to the supine position and transported to the recovery area having tolerated the procedure well with no evidence of complication. The patient was instructed to minimize weightbearing activity, including ambulation, for 48 hours, and to avoid bending, twisting at the waist, overhead work, reaching and lifting, pushing or pulling greater than 5-10 lbs for 48 hours with subsequent return to normal activity as tolerated. The patient is to maintain current dressing for 48 hours, then can remove the original dressing, leaving steri-strips in place until they come off on their own or are removed by their provider. Once removing the outer bandage, the patient will cover the incision with clean gauze and paper tape as needed, changing daily or when soiled. The patient understands they should avoid soaking or submerging the incision for 1 week and can resume showers after 48 hours. Instructions were provided to the patient in both verbal and written form, which the patient obtained, reviewed and signed prior to discharge. The patient was instructed to watch for signs of infection including fevers, chills, night sweats, severe headache, neck stiffness, new neurologic deficit, bowel or bladder changes, increased pain, discharge, bleeding, swelling, opening of or unusual warmth at the incision site. They are to call our office or report directly to the Emergency Department immediately should there be any signs/symptoms of complications such as the above or any other urgent/emergent changes in their condition. COMMENTS: None. COMPLICATIONS: None. DRAINS/PACKING: None. SPECIMEN: None. ESTIMATED BLOOD LOSS: 5 mL. IV FLUIDS: On chart. CONTRAST WASTED: 0 ml of Omnipaque 300. Pathology None sent Complications No immediate complications Condition Stable Disposition [facility] Billing Surgery - Charge Forward: Surgery Billing
[2025-07-10 08:27] VITALS: BP 113/59; PULSE 74; RESP 16; O2SAT 96
[2025-07-10 08:42] VITALS: BP 124/75; PULSE 68; RESP 16; O2SAT 98
[2025-07-10 09:05] VITALS: BP 141/73; PULSE 58; RESP 16; O2SAT 100
== END 2025-07-10 09:12 | disposition home or self-care (01) ==
PROVIDERS: PCP Family Medicine; Visit Provider Anesthesiology Pain Medicine
PROC: (CPT 0275T; principal; 2025-07-10 07:30)
DX: M48.062 Spinal stenosis, lumbar region with neurogenic claudication (principal); Z00.6 Encounter for examination for normal comparison and control in clinical research program
CPT/HCPCS: 0275T; 99199

== ENCOUNTER 2025-08-29 07:50 | Outpatient (CLI) | payer MEDICARE, SELFPAY ==
--- NOTE | ~2025-08-29 | NM_ITS ---
EXAMINATION: NM goldie stress w perfusion DATE: 08/29/2025 11:04 INDICATION: Encounter for preprocedural cardiovascular examination TECHNIQUE: Rest images were obtained following intravenous administration of 11.4 mCi Tc99m tetrofosmin (Myoview). The patient was infused intravenously with Lexiscan (Regadenoson). Then, 34 mCi Tc99m tetrofosmin (Myoview) was administered intravenously, and stress images were obtained. Data was recons tructed into short axis and horizontal and vertical long axis SPECT images. Gated SPECT images were also obtained. COMPARISON: None. FINDINGS: There is no definite reversible or fixed perfusion abnormality to suggest ischemia or infarction. There is normal left ventricular chamber size, wall motion and ejection fraction. Left ventricular ejection fraction measures >70%. IMPRESSION: 1. Normal myocardial perfusion at rest and during stress. 2. Left ventricular ejection fraction measuring >70%. Reviewed, dictated and finalized at location A. ANICAL SYSTEMS DESIGN ENGINEER
--- NOTE | 2025-08-29 08:29 | EST_ITS ---
Patient Info Name: Flower Austin Age: 79 years : 1945 Gender: Female Ht: 61 in Wt: 234 lbs BSA: 2.20 m2 HR: 69 bpm BP: 162 / 79 mmHg Exam Date: 08/29/2025 8:29 AM Patient Status: O Admit Date: 08/29/2025 Exam Type: CA stress goldie w NM A regadenoson stress test was performed. Staff Referring Physician: Ryan Escobar DO Attending Provider: Ryan Escobar DO Exercise Technologist: Brenda Mosqueda Exercise Physician: Ryan Escobar DO Summary 1. 1. Negative lexiscan stress test for ischemic ST changes by ECG criteria. 2. 2. Baseline hypertension. 3. 3. Nuclear scan to follow and will be reported separately. Please correlate with it. 4. 4. Patient informed of the above results. Protocol: Lexiscan Stress ECG Details Stage: REST Duration (min): 2 min : 13 sec HR (bpm): 69 SBP (mmHg): 162 DBP (mmHg): 79 Stage: REST Duration (min): 9 min : 11 sec HR (bpm): 70 SBP (mmHg): 162 DBP (mmHg): 79 Stage: STAGE 1 Duration (min): 1 min : 0 sec HR (bpm): 97 SBP (mmHg): 162 DBP (mmHg): 79 Stage: RECOVERY Duration (min): 1 min : 0 sec HR (bpm): 96 SBP (mmHg): 174 DBP (mmHg): 69 Stage: RECOVERY Duration (min): 2 min : 0 sec HR (bpm): 89 SBP (mmHg): 174 DBP (mmHg): 69 Stage: RECOVERY Duration (min): 3 min : 0 sec HR (bpm): 85 SBP (mmHg): 174 DBP (mmHg): 69 Stage: RECOVERY Duration (min): 4 min : 0 sec HR (bpm): 82 SBP (mmHg): 157 DBP (mmHg): 69 Stage: RECOVERY Duration (min): 5 min : 0 sec HR (bpm): 83 SBP (mmHg): 164 DBP (mmHg): 70 Stage: RECOVERY Duration (min): 5 min : 5 sec HR (bpm): 82 SBP (mmHg): 164 DBP (mmHg): 70 Rest HR: 70 bpm Peak HR: 100 bpm Rest Sys BP: 162 mmHg Peak Sys BP: 174 mmHg Max Pred HR: 141 bpm % Max Pred HR: 71 % Target HR: 120 bpm Max RPP: 17,400 bpm*mmHg Termination Reason: Completed protocol Cardiac Symptoms: Shortness of breath Total Time: 1 min : 0 sec Rest Hutton BP: 79 mmHg Peak Hutton BP: 69 mmHg Total Dose: 0.4 mg Resting ECG Sinus rhythm. Stress ECG No ST changes. Arrhythmias None. Report Signatures
== END 2025-08-29 07:51 | disposition home or self-care (01) ==
PROVIDERS: PCP Family Medicine; Visit Provider Internal Medicine Cardiovascular Disease
DX: Z01.810 Encounter for preprocedural cardiovascular examination (principal); I50.1 Left ventricular failure, unspecified
CPT/HCPCS: 78452; 93017; A9502; J2785